=== PATIENT | female | born 1950 | race Caucasian/White ===

== ENCOUNTER 2018-04-26 07:28 | Day surgery (SDC) | payer OTHER ==
[~2018-04-26 07:28] MED LIST: CATAPRES0.1 MG PO; HYZAAR 100-12.1 EACH; HYZAAR 50/12.51 TAB; LEVOTHROID50 MCG PO; NEURONTIN250 MG/5 M; NOVOLIN 70100 UNITS/ SUBCUTANEO; PROTONIX20 MG PO; SYNTHROID50 MCG PO
== END 2018-04-26 14:55 | disposition home or self-care (01) ==
LOC: CIR.AMB 07:28
DX: G56.01 Carpal tunnel syndrome, right upper limb (principal)

== ENCOUNTER 2018-10-25 19:08 | Emergency (ER) | payer OTHER ==
[~2018-10-25] VITALS: Ht 154.9 cm; Wt 110.7 kg
== END 2018-10-25 22:02 | disposition home or self-care (01) ==
LOC: ER 19:08
DX: J06.9 Acute upper respiratory infection, unspecified (principal); H10.32 Unspecified acute conjunctivitis, left eye; J11.1 Influenza due to unidentified influenza virus with other respiratory manifestations

== ENCOUNTER 2019-11-21 04:43 | Emergency (ER) | payer OTHER ==
[~2019-11-21] VITALS: Ht 152.4 cm; Wt 102.1 kg
== END 2019-11-21 07:57 | disposition home or self-care (01) ==
LOC: ER 04:43
DX: R07.89 Other chest pain (principal); R06.02 Shortness of breath

== ENCOUNTER 2020-03-12 00:17 | Emergency (ER) | payer OTHER ==
[~2020-03-12] VITALS: Ht 154.9 cm; Wt 108.4 kg
[2020-03-12] MEDS ORDERED: NOVOLIN R100 UNIT/1 (00:27)
== END 2020-03-12 02:19 | disposition home or self-care (01) ==
LOC: ER 00:17
DX: J45.998 Other asthma (principal); R06.02 Shortness of breath; Z03.818 Encounter for observation for suspected exposure to other biological agents ruled out

== ENCOUNTER 2020-11-05 13:22 | Emergency (ER) | payer OTHER ==
[~2020-11-05] VITALS: Ht 154.9 cm; Wt 108.9 kg
[~2020-11-05 13:22] MED LIST changes: +NOVOLIN R100 UNIT/1
[2020-11-05] MEDS ORDERED: HYDROCHLOROTH12.5 MG PO (13:39)
[2020-11-05] MEDS ORDERED: HUMULIN N100 UNIT/2 SQ (13:39)
[2020-11-05] MEDS ORDERED: MONTELUKAST SOD10 MG PO (13:39)
[2020-11-05] MEDS ORDERED: NOVOLIN R100 UNIT/1 IM (13:39)
[2020-11-05] MEDS ORDERED: SYMBICORT 16010.2 GM IH (13:39)
[2020-11-05] MEDS ORDERED: IRBESARTAN300 MG PO (13:40)
== END 2020-11-05 15:35 | disposition home or self-care (01) ==
LOC: ER 13:22
DX: I87.2 Venous insufficiency (chronic) (peripheral) (principal); L03.116 Cellulitis of left lower limb; L03.115 Cellulitis of right lower limb

== ENCOUNTER 2021-08-11 07:53 | Emergency (ER) | payer OTHER ==
[~2021-08-11] VITALS: Ht 180.3 cm; Wt 108.9 kg
[~2021-08-11 07:53] MED LIST changes: +HUMULIN N100 UNIT/2 SQ; +HYDROCHLOROTH12.5 MG PO; +IRBESARTAN300 MG PO; +MONTELUKAST SOD10 MG PO; +NOVOLIN R100 UNIT/1 IM; +SYMBICORT 16010.2 GM IH
== END 2021-08-11 13:01 | disposition home or self-care (01) ==
LOC: ER 07:53
DX: J45.909 Unspecified asthma, uncomplicated (principal); Z20.822 Contact with and (suspected) exposure to COVID-19

== ENCOUNTER 2021-08-25 05:08 | Emergency (ER) | payer OTHER ==
[~2021-08-25] VITALS: Ht 154.9 cm; Wt 108.9 kg
== END 2021-08-25 14:14 | disposition home or self-care (01) ==
LOC: ER 05:08
DX: J45.998 Other asthma (principal); L03.031 Cellulitis of right toe; Z11.52 Encounter for screening for COVID-19

== ENCOUNTER 2021-10-29 14:23 | Inpatient (IN) | payer OTHER ==
[~2021-10-29] VITALS: Ht 154.9 cm; Wt 108.9 kg
[2021-10-29] MEDS ORDERED: NEURONTIN300 MG PO (14:41)
[2021-10-29] MEDS ORDERED: HUMULIN R100 UNIT/1 SUBCUTANEO (14:43)
== END 2021-11-11 18:21 | disposition home or self-care (01) | DRG 638 ==
LOC: ER 14:23 → MEDI 22:13
PROVIDERS: ADMIT Internal Medicine; ATTEND Internal Medicine
PROC: 3E0F7GC Introduction of Other Therapeutic Substance into Respiratory Tract, Via Natural or Artificial Opening (ICD-10-PCS; 2021-10-29)
PROC: 05HY33Z Insertion of Infusion Device into Upper Vein, Percutaneous Approach (ICD-10-PCS; 2021-11-04)
PROC: CW1 Nuclear Medicine, Anatomical Regions, Planar Nuclear Medicine Imaging (ICD-10-PCS; 2021-11-04)
PROC: 0HDMXZZ Extraction of Right Foot Skin, External Approach (ICD-10-PCS; principal; 2021-11-05)
PROC: CW1DLZZ Planar Nuclear Medicine Imaging of Lower Extremity using Gallium 67 (Ga-67) (ICD-10-PCS; 2021-11-07)
PROC: B24BZZZ Ultrasonography of Heart with Aorta (ICD-10-PCS; 2021-11-08)
DX: E11.621 Type 2 diabetes mellitus with foot ulcer (principal); L97.518 Non-pressure chronic ulcer of other part of right foot with other specified severity; I96 Gangrene, not elsewhere classified; L03.031 Cellulitis of right toe; E11.42 Type 2 diabetes mellitus with diabetic polyneuropathy; Z79.4 Long term (current) use of insulin; B96.5 Pseudomonas (aeruginosa) (mallei) (pseudomallei) as the cause of diseases classified elsewhere; B95.2 Enterococcus as the cause of diseases classified elsewhere; D64.9 Anemia, unspecified; M79.89 Other specified soft tissue disorders; I10 Essential (primary) hypertension; E03.8 Other specified hypothyroidism; J45.998 Other asthma; Z20.822 Contact with and (suspected) exposure to COVID-19

== ENCOUNTER 2022-03-31 10:06 | Inpatient (IN) | payer OTHER ==
[~2022-03-31] VITALS: Ht 154.9 cm; Wt 106.6 kg
[~2022-03-31 10:06] MED LIST changes: +HUMULIN R100 UNIT/1 SUBCUTANEO; +NEURONTIN300 MG PO
== END 2022-04-07 16:02 | disposition designated cancer center or children's hospital (05) | DRG 203 ==
LOC: ER 10:06 → MEDI 23:48 → SEC-K 23:48 → MEDI 04-01 10:07
PROVIDERS: ADMIT Internal Medicine; ATTEND Internal Medicine
PROC: 3E0F7SF Introduction of Other Gas into Respiratory Tract, Via Natural or Artificial Opening (ICD-10-PCS; principal; 2022-03-31)
PROC: 3E0F7GC Introduction of Other Therapeutic Substance into Respiratory Tract, Via Natural or Artificial Opening (ICD-10-PCS; 2022-03-31)
DX: J45.901 Unspecified asthma with (acute) exacerbation (principal); J44.9 Chronic obstructive pulmonary disease, unspecified; E11.65 Type 2 diabetes mellitus with hyperglycemia; E03.8 Other specified hypothyroidism; Z79.4 Long term (current) use of insulin; Z20.822 Contact with and (suspected) exposure to COVID-19

== ENCOUNTER 2022-07-29 11:20 | Inpatient (IN) | payer OTHER ==
[~2022-07-29] VITALS: Ht 154.9 cm; Wt 113.4 kg
[2022-07-29] MEDS ORDERED: ATORVASTATIN CA40 MG PO (11:35)
[2022-07-29] MEDS ORDERED: IRBESARTAN150 MG PO (11:35)
[2022-07-29] MEDS ORDERED: DILTIAZEM ER120 M3 PO (11:35)
[2022-07-29] MEDS ORDERED: LEVOFLOXACIN500 MG PO (11:35)
[2022-07-29] MEDS ORDERED: LEVOTHYROXINE100 MCG PO (11:36)
--- NOTE | 2022-07-29 11:38 | NUR ---
SE RECIBE PACIENTE ALERTA, ORIENTADA X 3 ESFERAS REFIERE TENER ASMA Y DOLOR EN AREA DE GARGANTA , SE ESTIMAN S/V SE UBICA EN ASMA UNIT
--- NOTE | 2022-07-29 12:04 | NUR ---
SE REALIZAN MEUSTRAS DE KAYCEE POR ORDEN MEDICA, SE REALIZA ADMINISTRACION DE SULFATO DE MAGNESIO, Y SOLUMEDROL. PACIENTE SE ORIENTA SOBRE USO Y EFECTOS Y SE MANTIENE A PACIENT EE ESPERA DE TERAPISTA. SE NOTIFICA A PERSONAL DE TERAPIA.
--- NOTE | 2022-07-29 13:22 | NUR ---
PACIENTE NO SE FLORES PODIDO MANEJAR PACIENTE SE ENCUENTRA EN ESTUDIO.
--- NOTE | 2022-07-29 14:47 | NUR ---
SE RECIBE PACIENTE EN AREA DE CRITICO, EN SILLA DE MAILE ACOMPANADA POR RN JUAN JOSE. PACIENTE ALERTA Y ORIENTADA X3 SE ASISTE PARA USAR EL YESSI. SE ACOMODA EN CAMA CON BARANDAS ELEVADAS Y TIMBRE ACCESIBLE. PACIENTE SE OBSEVA CANALIZADA EN MANO RT CON ANGIO 20 PATENTE BAJANDO MAGNESIUM SULFATE A GRAVEDAD CON REGULADOR MANUAL. MRS YODER CANALIZA EN MANO LT CON ANGIO 18 PATENTE BAJANDO UN TRIDIL A 3ML/HR. SE COLOCA CANULA NASAL A 2LT Y SE INSERTA BERNAL 16FR BAJO MEDIDAS ESTERILES. PACIENTE TOLERA EL PROCEDIMIENTO, SE ORIENTA A PACIENTE SOBRE CONTINUIDAD DE TRATAMIENTO.
== END 2022-08-03 19:30 | disposition home or self-care (01) | DRG 293 ==
LOC: ER 11:20 → MEDJ 21:15 → MEDI 07-31 09:09
PROVIDERS: ADMIT Internal Medicine; ATTEND Internal Medicine
PROC: 4A12X4Z Monitoring of Cardiac Electrical Activity, External Approach (ICD-10-PCS; principal; 2022-07-30)
PROC: 3E0F7GC Introduction of Other Therapeutic Substance into Respiratory Tract, Via Natural or Artificial Opening (ICD-10-PCS; 2022-07-30)
DX: I11.0 Hypertensive heart disease with heart failure (principal); I50.9 Heart failure, unspecified; F41.8 Other specified anxiety disorders; Z20.822 Contact with and (suspected) exposure to COVID-19

== ENCOUNTER 2022-11-12 09:10 | Inpatient (IN) | payer OTHER ==
[~2022-11-12] VITALS: Ht 154.9 cm; Wt 103.4 kg
[~2022-11-12 09:10] MED LIST changes: +ATORVASTATIN CA40 MG PO; +DILTIAZEM ER120 M3 PO; +IRBESARTAN150 MG PO; +LEVOFLOXACIN500 MG PO; +LEVOTHYROXINE100 MCG PO
--- NOTE | 2022-11-12 10:04 | NUR ---
SE RECIBE PTE ALERTA Y ORIENTADO PTE REFIERE QUE EL DR. DENISHA MANDUJANO YOU LA KATHLEEN A PASAR POR LUZ ELENA DE EMERGENCIAS DEBIDO AL DEDO NECROTICO QUE TIENE. PTE TIENE REFERIDO DEL MEDICO. SE GIACOMO VITALES Y SE FAVIAN EN LUZ ELENA DE ESPERA.
--- NOTE | 2022-11-12 11:27 | NUR ---
PTE ALERTA,ESTABLE Y ORIENTADA.SE EDUCA SOBRE EL TRATAMIENTO QUE RECIBIRA EN EL HOSPITAL Y ESTA REFIERE ENTENDER.SE LE GIACOMO MUESTRAS DE KAYCEE PALOMA ORDEN MEDICA Y SE LE ADMINISTRA MEDICAMENTOS PALOMA ORDEN MEDICA
--- NOTE | 2022-11-12 15:29 | NUR ---
SE RECIBE PTE ALERTA Y ORIENTADA EN EVELYN BAJA CON BARANDAS ELEVADAS POR SEGURIDAD. SE OBSERVA PTE CON BUEN PATRON RESPIRATORIO. RECIBIENDO IV FLUIDS PATENTES. AREA DE VENOPUNCION GALI DE EDEMA Y ERITEMA.PEND CONS. DR DENISHA OQUENDO, DR. MANDUJANO DE SURGERY.
[2022-11-28] MEDS ORDERED: INTESTINEX680 M1 PO (11:59)
[2022-11-28] MEDS ORDERED: ECOTRIN81 MG PO (12:00)
[2022-11-28] MEDS ORDERED: PROTONIX40 MG PO (12:00)
[2022-11-28] MEDS ORDERED: VITAMIN B-121000 MC2 SL (12:01)
[2022-11-28] MEDS ORDERED: FUSION PLUS CA1 EACH PO (12:01)
[2022-11-28] MEDS ORDERED: FOLIC ACID0.8 M1 PO (12:02)
[2022-11-28] MEDS ORDERED: CARAFATE1 GM PO (12:03)
== END 2022-11-28 12:53 | disposition home or self-care (01) | DRG 256 ==
LOC: ER 09:10 → EMR PED 09:15 → SURH 20:43 → MEDJ 20:43 → SEC-K 20:43 → SURH 11-13 03:26 → MEDI 11-16 15:47 → MEDJ 11-19 19:21
PROVIDERS: Specialist; ADMIT Internal Medicine; ATTEND Internal Medicine
PROC: B54BZZZ Ultrasonography of Right Lower Extremity Veins (ICD-10-PCS; 2022-11-12)
PROC: BQ3DZZZ Magnetic Resonance Imaging (MRI) of Right Lower Leg (ICD-10-PCS; 2022-11-13)
PROC: B246ZZZ Ultrasonography of Right and Left Heart (ICD-10-PCS; 2022-11-13)
PROC: 3E0F7GC Introduction of Other Therapeutic Substance into Respiratory Tract, Via Natural or Artificial Opening (ICD-10-PCS; 2022-11-16)
PROC: 4A12X4Z Monitoring of Cardiac Electrical Activity, External Approach (ICD-10-PCS; 2022-11-17)
PROC: 30233N1 Transfusion of Nonautologous Red Blood Cells into Peripheral Vein, Percutaneous Approach (ICD-10-PCS; 2022-11-17)
PROC: BW40ZZZ Ultrasonography of Abdomen (ICD-10-PCS; 2022-11-22)
PROC: 0Y6R0Z0 Detachment at Right 2nd Toe, Complete, Open Approach (ICD-10-PCS; principal; 2022-11-23 07:00)
PROC: 02HV33Z Insertion of Infusion Device into Superior Vena Cava, Percutaneous Approach (ICD-10-PCS; 2022-11-24)
DX: E11.52 Type 2 diabetes mellitus with diabetic peripheral angiopathy with gangrene (principal); I96 Gangrene, not elsewhere classified; M86.171 Other acute osteomyelitis, right ankle and foot; L97.518 Non-pressure chronic ulcer of other part of right foot with other specified severity; E11.69 Type 2 diabetes mellitus with other specified complication; E11.621 Type 2 diabetes mellitus with foot ulcer; E11.628 Type 2 diabetes mellitus with other skin complications; E11.65 Type 2 diabetes mellitus with hyperglycemia; L03.031 Cellulitis of right toe; Z79.4 Long term (current) use of insulin; B96.89 Other specified bacterial agents as the cause of diseases classified elsewhere; B95.2 Enterococcus as the cause of diseases classified elsewhere; I87.2 Venous insufficiency (chronic) (peripheral)

== ENCOUNTER 2023-05-31 23:22 | Emergency (ER) | payer OTHER ==
[~2023-05-31] VITALS: Ht 154.9 cm; Wt 103.4 kg
[~2023-05-31 23:22] MED LIST changes: +CARAFATE1 GM PO; +ECOTRIN81 MG PO; +FOLIC ACID0.8 M1 PO; +FUSION PLUS CA1 EACH PO; +INTESTINEX680 M1 PO; +PROTONIX40 MG PO; +VITAMIN B-121000 MC2 SL
[2023-05-31] MEDS ORDERED: LORATADINE10 MG PO (23:30)
== END 2023-06-01 06:26 | disposition home or self-care (01) ==
LOC: ER 23:22
DX: I50.9 Heart failure, unspecified (principal); E11.65 Type 2 diabetes mellitus with hyperglycemia; Z79.4 Long term (current) use of insulin; Z20.822 Contact with and (suspected) exposure to COVID-19; Z88.6 Allergy status to analgesic agent; J44.9 Chronic obstructive pulmonary disease, unspecified
CPT/HCPCS: 51702; 82803; 93005; 94640; 96365; 96372; 99284; J1940

== ENCOUNTER 2023-07-19 21:13 | Inpatient (IN) | payer OTHER ==
[~2023-07-19] VITALS: Ht 152.4 cm; Wt 159.7 kg
[~2023-07-19 21:13] MED LIST changes: +LORATADINE10 MG PO
--- NOTE | 2023-07-19 21:52 | NUR ---
PACIENTE ALERTA Y ORIENTADA X 3. REFIERE DR MANDUJANO YOU LE INDICO PASAR POR LUZ ELENA DE EMERGENCIA PARA ADMISION POR INFLAMACION EN PIERNA DERECHA Y AREA DEL PIEN ENROJESIDA. PACIENTE LE FUERON REMOVIDOS 3 1/2 DEDOS DEL PIE DERECHO. REFIERE TENER DOLOR DE ESPALDA Y DEBILIDAD.
--- NOTE | 2023-07-19 22:46 | NUR ---
SE EDUCA PACIENTE SOBRE EL [place] MEDICO Y ESTA REFIERE ENTENDER. SE CANALIZA Y SE ADMINITRA MEDICAMENTOS PALOMA ORDEN MEDICA. SE GIACOMO MUESTRAS DE LABORAOTRIO Y SE ENVIAN. PENDINETE A PLACA
[2023-07-19 23:17] LABS: HEMATOCRIT 31.9 % (36.0-45.00); MEAN CELL VOLUME 87.6 fL (80.00-100.00); MEAN CORPUSCULAR HGB CONC 34.3 g/dl (32.0-36.0); PLATELET COUNT 243 K/uL (150-450); RED BLOOD COUNT 3.65 M/uL (4.00-6.00)
[2023-07-19 23:22] LABS: MEAN CORPUSCULAR HEMOGLOBIN 30.1 pg (27.00-32.0)
[2023-07-19 23:25] LABS: ERYTHROCYTE SEDIMENTATION RATE 89 mm/hr; INR 0.97; PARTIAL THROMBOPLASTIN TIME 26.2 SECONDS (22.0-34.0); PROTHROMBIN TIME 10.2 SECONDS (9.0-11.5)
[2023-07-20 02:20] LABS: ABG PH 7.377 (7.35-7.45); ABG PO2 94.5 mmHg (80-100); BASE EXCESS -0.6 mmol/l; SaO2 97.1 %
[2023-07-20 02:21] LABS: BICARBONATE 24.7 mmol/l (23-25); allen test SATISFACTORY; puncture site RADIAL LEFT
[2023-07-20 02:22] LABS: o2 21 %
[2023-07-20 07:19] LABS: HEMATOCRIT 32.5 % (36.0-45.00); HEMOGLOBIN 10.8 g/dL (12.0-15.00); MEAN CELL VOLUME 88.1 fL (80.00-100.00); MEAN CORPUSCULAR HEMOGLOBIN 29.3 pg (27.00-32.0); MEAN CORPUSCULAR HGB CONC 33.3 g/dl (32.0-36.0); PLATELET COUNT 237 K/uL (150-450); RED BLOOD COUNT 3.69 M/uL (4.00-6.00); RED CELL DISTRIBUTION WIDTH 14.7 % (11.5-14.5)
[2023-07-20 08:21] LABS: ALBUMIN 2.6 gm/dL (3.4-5.0); BILIRUBIN TOTAL 0.35 mg/dL (0.3-1.2); CALCIUM 8.7 mg/dL (8.5-10.1); CHOL HDL RATIO 2.8 (0-5.0); CREATININE SERUM 0.73 mg/dL (0.55-1.02); GFR 78.15; GLOBULINA 4.1 G/DL (2.4-3.5); POTASSIUM 5.13 mEq/L (3.5-5.1); TOTAL PROTEIN 6.7 gm/dL (6.4-8.2)
[2023-07-20 08:27] LABS: T4 FREE 1.51 NG/ML (0.76-1.46); TSH 0.017 uIU/mL (0.358-3.74)
[2023-07-21 07:36] LABS: HEMATOCRIT 32.6 % (36.0-45.00); HEMOGLOBIN 10.8 g/dL (12.0-15.00); MEAN CELL VOLUME 88.5 fL (80.00-100.00); MEAN CORPUSCULAR HEMOGLOBIN 29.3 pg (27.00-32.0); MEAN CORPUSCULAR HGB CONC 33.1 g/dl (32.0-36.0); PLATELET COUNT 235 K/uL (150-450); RED BLOOD COUNT 3.68 M/uL (4.00-6.00); RED CELL DISTRIBUTION WIDTH 14.7 % (11.5-14.5)
[2023-07-21 08:28] LABS: ALBUMIN 2.5 gm/dL (3.4-5.0); BILIRUBIN TOTAL 0.41 mg/dL (0.3-1.2); CALCIUM 8.8 mg/dL (8.5-10.1); CREATININE SERUM 0.88 mg/dL (0.55-1.02); GFR 62.99; GLOBULINA 3.9 G/DL (2.4-3.5); MAGNESIUM 1.6 mg/dL (1.8-2.4); PHOSPHOROUS 3.8 mg/dL (2.5-4.9); POTASSIUM 4.98 mEq/L (3.5-5.1); TOTAL PROTEIN 6.4 gm/dL (6.4-8.2)
[2023-07-21 08:36] LABS: C-REACTIVE PROTEIN 2.03 MG/DL (0.00-0.29)
[2023-07-22 07:54] LABS: CALCIUM 8.9 mg/dL (8.5-10.1); CREATININE SERUM 0.86 mg/dL (0.55-1.02); GFR 64.68; POTASSIUM 4.75 mEq/L (3.5-5.1)
[2023-07-23 06:58] LABS: ALBUMIN 2.6 gm/dL (3.4-5.0); BILIRUBIN TOTAL 0.27 mg/dL (0.3-1.2); CALCIUM 8.8 mg/dL (8.5-10.1); CREATININE SERUM 1.17 mg/dL (0.55-1.02); GFR 45.34; GLOBULINA 3.9 G/DL (2.4-3.5); POTASSIUM 5.2 mEq/L (3.5-5.1); TOTAL PROTEIN 6.5 gm/dL (6.4-8.2)
[2023-07-24 07:04] LABS: HEMATOCRIT 26.1 % (36.0-45.00); MEAN CORPUSCULAR HEMOGLOBIN 29.3 pg (27.00-32.0); MEAN CORPUSCULAR HGB CONC 33.3 g/dl (32.0-36.0); PLATELET COUNT 188 K/uL (150-450); RED BLOOD COUNT 2.96 M/uL (4.00-6.00); RED CELL DISTRIBUTION WIDTH 14.5 % (11.5-14.5)
[2023-07-24 07:11] LABS: HEMOGLOBIN 8.7 g/dL (12.0-15.00)
[2023-07-24 07:52] LABS: ALBUMIN 2.4 gm/dL (3.4-5.0); BILIRUBIN TOTAL 0.27 mg/dL (0.3-1.2); CKMB 1.9 NG/ML (0.5-3.6); CREATININE SERUM 3.14 mg/dL (0.55-1.02); GFR 14.51; GLOBULINA 3.6 G/DL (2.4-3.5); POTASSIUM 4.95 mEq/L (3.5-5.1)
[2023-07-24 15:55] LABS: MEAN CORPUSCULAR HGB CONC 34.5 g/dl (32.0-36.0); PLATELET COUNT 188 K/uL (150-450); RED BLOOD COUNT 2.88 M/uL (4.00-6.00); RED CELL DISTRIBUTION WIDTH 14.5 % (11.5-14.5)
[2023-07-24 15:57] LABS: HEMOGLOBIN 8.6 g/dL (12.0-15.00); MEAN CORPUSCULAR HEMOGLOBIN 29.8 pg (27.00-32.0)
[2023-07-25 12:46] LABS: ALBUMIN 2.2 gm/dL (3.4-5.0); BILIRUBIN TOTAL 0.43 mg/dL (0.3-1.2); CALCIUM 8.1 mg/dL (8.5-10.1); GFR 8.83; GLOBULINA 3.7 G/DL (2.4-3.5); POTASSIUM 5.52 mEq/L (3.5-5.1); TOTAL PROTEIN 5.9 gm/dL (6.4-8.2)
[2023-07-25 12:50] LABS: CREATININE SERUM 4.83 mg/dL (0.55-1.02)
[2023-07-25 23:13] LABS: HEMATOCRIT 28.7 % (36.0-45.00); HEMOGLOBIN 9.9 g/dL (12.0-15.00); MEAN CELL VOLUME 85.6 fL (80.00-100.00); MEAN CORPUSCULAR HEMOGLOBIN 29.5 pg (27.00-32.0); MEAN CORPUSCULAR HGB CONC 34.5 g/dl (32.0-36.0); PLATELET COUNT 160 K/uL (150-450); RED BLOOD COUNT 3.35 M/uL (4.00-6.00)
[2023-07-26 02:09] LABS: URINE APPEARANCE Turbid; URINE BILIRRUBIN Negative (NEGATIVE); URINE BLOOD Small; URINE COLOR Yellow; URINE LEUKOCYTE Large; URINE NITRATE Negative; URINE UROBILINOGEN 0.2 E.U./dl
[2023-07-26 02:13] LABS: URINE BACTERIA 1985.1 uL (0.0-1933); URINE EPITHELIAL CELLS 108.9 uL (0.0-38.8); URINE RBC 2739.9 uL (0.0-20.8)
[2023-07-26 02:23] LABS: URINE GLUCOSE 100 MG/DL (NEGATIVE); URINE PROTEIN 100 (NEGATIVE); URINE WBC > 5548.3 uL (0.0-23.2); URINE YEAST MANY /hpf
[2023-07-26 02:49] LABS: CREATININE URINE RANDOM 19.2 MG/DL (30-125)
[2023-07-26 06:51] LABS: HEMATOCRIT 26.5 % (36.0-45.00); HEMOGLOBIN 9.4 g/dL (12.0-15.00); MEAN CELL VOLUME 84.8 fL (80.00-100.00); MEAN CORPUSCULAR HEMOGLOBIN 30.1 pg (27.00-32.0); MEAN CORPUSCULAR HGB CONC 35.5 g/dl (32.0-36.0); PLATELET COUNT 160 K/uL (150-450); RED BLOOD COUNT 3.12 M/uL (4.00-6.00); RED CELL DISTRIBUTION WIDTH 14.7 % (11.5-14.5)
[2023-07-26 07:39] LABS: BILIRUBIN TOTAL 0.53 mg/dL (0.3-1.2); CALCIUM 7.9 mg/dL (8.5-10.1); GFR 8.25; GLOBULINA 3.4 G/DL (2.4-3.5); MAGNESIUM 2.1 mg/dL (1.8-2.4); PHOSPHOROUS 6.8 mg/dL (2.5-4.9); POTASSIUM 5.06 mEq/L (3.5-5.1); TOTAL PROTEIN 5.4 gm/dL (6.4-8.2); URIC ACID 7.1 mg/dL (2.5-7.5)
[2023-07-26 07:59] LABS: CREATININE SERUM 5.12 mg/dL (0.55-1.02)
[2023-07-26 15:23] LABS: URINE APPEARANCE Cloudy; URINE BILIRRUBIN Negative (NEGATIVE); URINE BLOOD Small; URINE COLOR Yellow; URINE GLUCOSE Negative (NEGATIVE); URINE LEUKOCYTE Large; URINE NITRATE Negative; URINE UROBILINOGEN 0.2 E.U./dl
[2023-07-26 15:24] LABS: URINE BACTERIA 455.7 uL (0.0-1933); URINE EPITHELIAL CELLS 5.1 uL (0.0-38.8); URINE RBC 188.6 uL (0.0-20.8); URINE WBC 2111.3 uL (0.0-23.2)
[2023-07-26 15:43] LABS: URINE PROTEIN 100 (NEGATIVE); URINE YEAST MANY /hpf
[2023-07-27 07:30] LABS: HEMATOCRIT 29.6 % (36.0-45.00); HEMOGLOBIN 10.1 g/dL (12.0-15.00); MEAN CELL VOLUME 85.8 fL (80.00-100.00); MEAN CORPUSCULAR HEMOGLOBIN 29.3 pg (27.00-32.0); MEAN CORPUSCULAR HGB CONC 34.1 g/dl (32.0-36.0); PLATELET COUNT 199 K/uL (150-450); RED BLOOD COUNT 3.46 M/uL (4.00-6.00)
[2023-07-27 08:23] LABS: ALBUMIN 2.3 gm/dL (3.4-5.0); CALCIUM 8.1 mg/dL (8.5-10.1); CREATININE SERUM 3.9 mg/dL (0.55-1.02); GFR 11.3; PHOSPHOROUS 6.4 mg/dL (2.5-4.9); POTASSIUM 4.27 mEq/L (3.5-5.1)
[2023-07-28 07:15] LABS: CALCIUM 7.9 mg/dL (8.5-10.1); CREATININE SERUM 2.11 mg/dL (0.55-1.02); GFR 22.96; POTASSIUM 4.08 mEq/L (3.5-5.1)
[2023-07-30 06:49] LABS: HEMATOCRIT 32.3 % (36.0-45.00); HEMOGLOBIN 10.6 g/dL (12.0-15.00); MEAN CORPUSCULAR HEMOGLOBIN 28.8 pg (27.00-32.0); MEAN CORPUSCULAR HGB CONC 32.7 g/dl (32.0-36.0); PLATELET COUNT 234 K/uL (150-450); RED BLOOD COUNT 3.66 M/uL (4.00-6.00); RED CELL DISTRIBUTION WIDTH 14.9 % (11.5-14.5)
[2023-07-30 08:03] LABS: CALCIUM 8.1 mg/dL (8.5-10.1); CREATININE SERUM 0.89 mg/dL (0.55-1.02); GFR 62.17; PHOSPHOROUS 2.5 mg/dL (2.5-4.9); POTASSIUM 4.12 mEq/L (3.5-5.1)
[2023-07-30 08:16] LABS: MAGNESIUM 1.4 mg/dL (1.8-2.4)
[2023-08-03] MEDS ORDERED: ELIQUIS5 MG PO (13:04)
[2023-08-03] MEDS ORDERED: FUSION PLUS CA1 EACH PO (13:05)
[2023-08-03] MEDS ORDERED: AMLODIPINE BESYL5 MG PO (13:05)
[2023-08-03] MEDS ORDERED: CLOPIDOGREL BIS75 MG PO (13:05)
[2023-08-03] MEDS ORDERED: LIPITOR40 M1 PO (13:05)
[2023-08-03] MEDS ORDERED: LORATADINE10 MG PO (13:05)
[2023-08-03] MEDS ORDERED: IRBESARTAN150 MG PO (13:06)
[2023-08-03] MEDS ORDERED: TOPROL XL100 M1 PO (13:06)
[2023-08-03] MEDS ORDERED: HYDRALAZINE HCL25 MG PO (13:06)
[2023-08-03] MEDS ORDERED: CARAFATE1 GM PO (13:07)
[2023-08-03] MEDS ORDERED: TRAMADOL HCL50 MG PO (13:07)
[2023-08-03] MEDS ORDERED: NEURONTIN300 MG PO (13:07)
[2023-08-03] MEDS ORDERED: SYNTHROID50 MCG PO (13:08)
== END 2023-08-03 13:55 | disposition home or self-care (01) | DRG 580 ==
LOC: ER 21:13 → SURG 23:53 → ICU 07-26 05:24 → SURH 07-30 14:08
PROVIDERS: General Practice; Internal Medicine Infectious Disease; Internal Medicine Nephrology; ADMIT Internal Medicine; ATTEND Internal Medicine
PROC: B54BZZZ Ultrasonography of Right Lower Extremity Veins (ICD-10-PCS; 2023-07-19)
PROC: BQ3LZZZ Magnetic Resonance Imaging (MRI) of Right Foot (ICD-10-PCS; 2023-07-20)
PROC: 8E0ZXY6 Isolation (ICD-10-PCS; 2023-07-22)
PROC: 30233N1 Transfusion of Nonautologous Red Blood Cells into Peripheral Vein, Percutaneous Approach (ICD-10-PCS; 2023-07-25)
PROC: 0Y6V0Z3 Detachment at Right 4th Toe, Low, Open Approach (ICD-10-PCS; principal; 2023-07-26)
PROC: BW21ZZZ Computerized Tomography (CT Scan) of Abdomen and Pelvis (ICD-10-PCS; 2023-07-26)
PROC: BT43ZZZ Ultrasonography of Bilateral Kidneys (ICD-10-PCS; 2023-07-26)
PROC: B24BYZZ Ultrasonography of Heart with Aorta using Other Contrast (ICD-10-PCS; 2023-07-27)
DX: L03.115 Cellulitis of right lower limb (principal); E11.52 Type 2 diabetes mellitus with diabetic peripheral angiopathy with gangrene; I96 Gangrene, not elsewhere classified; N39.0 Urinary tract infection, site not specified; N17.9 Acute kidney failure, unspecified; M86.9 Osteomyelitis, unspecified; E11.621 Type 2 diabetes mellitus with foot ulcer; L97.519 Non-pressure chronic ulcer of other part of right foot with unspecified severity; Z79.4 Long term (current) use of insulin; J44.9 Chronic obstructive pulmonary disease, unspecified; Z74.01 Bed confinement status; E11.22 Type 2 diabetes mellitus with diabetic chronic kidney disease; I12.9 Hypertensive chronic kidney disease with stage 1 through stage 4 chronic kidney disease, or unspecified chronic kidney disease; N18.9 Chronic kidney disease, unspecified; B96.89 Other specified bacterial agents as the cause of diseases classified elsewhere; B96.1 Klebsiella pneumoniae [K. pneumoniae] as the cause of diseases classified elsewhere; B96.5 Pseudomonas (aeruginosa) (mallei) (pseudomallei) as the cause of diseases classified elsewhere; B95.1 Streptococcus, group B, as the cause of diseases classified elsewhere; E11.51 Type 2 diabetes mellitus with diabetic peripheral angiopathy without gangrene; E66.01 Morbid (severe) obesity due to excess calories; Z68.37 Body mass index [BMI] 37.0-37.9, adult; I48.0 Paroxysmal atrial fibrillation; I87.2 Venous insufficiency (chronic) (peripheral); I51.9 Heart disease, unspecified; D64.9 Anemia, unspecified
CPT/HCPCS: 73725

== ENCOUNTER 2023-09-21 11:47 | Inpatient (IN) | payer OTHER ==
[~2023-09-21] VITALS: Ht 162.6 cm; Wt 106.1 kg
[~2023-09-21 11:47] MED LIST changes: +AMLODIPINE BESYL5 MG PO; +CLOPIDOGREL BIS75 MG PO; +ELIQUIS5 MG PO; +HYDRALAZINE HCL25 MG PO; +LIPITOR40 M1 PO; +TOPROL XL100 M1 PO; +TRAMADOL HCL50 MG PO
[2023-09-21 12:51] LABS: HEMATOCRIT 27.9 % (36.0-45.00); HEMOGLOBIN 9.5 g/dL (12.0-15.00); MEAN CELL VOLUME 90.3 fL (80.00-100.00); MEAN CORPUSCULAR HEMOGLOBIN 30.8 pg (27.00-32.0); MEAN CORPUSCULAR HGB CONC 34.1 g/dl (32.0-36.0); PLATELET COUNT 223 K/uL (150-450); RED BLOOD COUNT 3.08 M/uL (4.00-6.00); RED CELL DISTRIBUTION WIDTH 13.9 % (11.5-14.5)
[2023-09-21 13:13] LABS: INR 1.01; PARTIAL THROMBOPLASTIN TIME 29.3 SECONDS (22.0-34.0); PROTHROMBIN TIME 10.6 SECONDS (9.0-11.5)
[2023-09-21 13:17] LABS: ALBUMIN 2.9 gm/dL (3.4-5.0); BILIRUBIN TOTAL 0.4 mg/dL (0.3-1.2); CALCIUM 9.2 mg/dL (8.5-10.1); CREATININE SERUM 1.1 mg/dL (0.55-1.02); GFR 48.69; GLOBULINA 4.9 G/DL (2.4-3.5); POTASSIUM 4.66 mEq/L (3.5-5.1); TOTAL PROTEIN 7.8 gm/dL (6.4-8.2)
[2023-09-21 13:27] LABS: URINE APPEARANCE Cloudy; URINE BILIRRUBIN Negative (NEGATIVE); URINE BLOOD Trace; URINE COLOR Yellow; URINE LEUKOCYTE Small; URINE NITRATE Negative; URINE UROBILINOGEN 0.2 E.U./dl
[2023-09-21 13:30] LABS: C-REACTIVE PROTEIN 10.1 MG/DL (0.00-0.29)
[2023-09-21 13:35] LABS: URINE EPITHELIAL CELLS 7.7 uL (0.0-38.8); URINE RBC 3.7 uL (0.0-20.8); URINE WBC 502.2 uL (0.0-23.2)
[2023-09-21 13:42] LABS: URINE BACTERIA > 9821.5 uL (0.0-1933); URINE GLUCOSE 100 MG/DL (NEGATIVE); URINE PROTEIN 100 (NEGATIVE)
[2023-09-21 13:54] LABS: ERYTHROCYTE SEDIMENTATION RATE 81 mm/hr
[2023-09-22 17:24] LABS: PH,URINE 5.5 (5.0-8.0); URINE APPEARANCE Turbid; URINE BILIRRUBIN Negative (NEGATIVE); URINE BLOOD Moderate; URINE COLOR Yellow; URINE LEUKOCYTE Large; URINE NITRATE Negative; URINE UROBILINOGEN 0.2 E.U./dl
[2023-09-22 17:28] LABS: URINE BACTERIA 721.9 uL (0.0-1933); URINE EPITHELIAL CELLS 126.5 uL (0.0-38.8); URINE RBC 13.7 uL (0.0-20.8)
[2023-09-22 17:47] LABS: URINE GLUCOSE 500 MG/DL (NEGATIVE); URINE PROTEIN 100 (NEGATIVE); URINE WBC > 5548.3 uL (0.0-23.2)
[2023-09-22 17:48] LABS: URINE MUCUS SCANT
[2023-09-23 07:56] LABS: HEMATOCRIT 24.3 % (36.0-45.00); MEAN CELL VOLUME 89.2 fL (80.00-100.00); MEAN CORPUSCULAR HEMOGLOBIN 31.2 pg (27.00-32.0); MEAN CORPUSCULAR HGB CONC 34.9 g/dl (32.0-36.0); PLATELET COUNT 184 K/uL (150-450); RED BLOOD COUNT 2.72 M/uL (4.00-6.00); RED CELL DISTRIBUTION WIDTH 13.7 % (11.5-14.5)
[2023-09-23 08:01] LABS: HEMOGLOBIN 8.5 g/dL (12.0-15.00)
[2023-09-23 08:09] LABS: ALBUMIN 2.2 gm/dL (3.4-5.0); BILIRUBIN TOTAL 0.45 mg/dL (0.3-1.2); CREATININE SERUM 0.68 mg/dL (0.55-1.02); GFR 84.81; GLOBULINA 3.5 G/DL (2.4-3.5); MAGNESIUM 1.5 mg/dL (1.8-2.4); PHOSPHOROUS 2.6 mg/dL (2.5-4.9); POTASSIUM 4.03 mEq/L (3.5-5.1); TOTAL PROTEIN 5.7 gm/dL (6.4-8.2)
[2023-09-23 08:37] LABS: C-REACTIVE PROTEIN 9.87 MG/DL (0.00-0.29)
[2023-09-26 11:22] LABS: HEMATOCRIT 33.5 % (36.0-45.00); HEMOGLOBIN 11.4 g/dL (12.0-15.00); MEAN CELL VOLUME 86.9 fL (80.00-100.00); MEAN CORPUSCULAR HEMOGLOBIN 29.6 pg (27.00-32.0); PLATELET COUNT 204 K/uL (150-450); RED BLOOD COUNT 3.86 M/uL (4.00-6.00); RED CELL DISTRIBUTION WIDTH 15.6 % (11.5-14.5)
[2023-09-28 06:54] LABS: HEMATOCRIT 30.8 % (36.0-45.00); HEMOGLOBIN 10.7 g/dL (12.0-15.00); MEAN CELL VOLUME 87.1 fL (80.00-100.00); MEAN CORPUSCULAR HEMOGLOBIN 30.2 pg (27.00-32.0); MEAN CORPUSCULAR HGB CONC 34.7 g/dl (32.0-36.0); PLATELET COUNT 196 K/uL (150-450); RED BLOOD COUNT 3.54 M/uL (4.00-6.00); RED CELL DISTRIBUTION WIDTH 15.2 % (11.5-14.5)
[2023-09-28 07:23] LABS: ALBUMIN 2.1 gm/dL (3.4-5.0); BILIRUBIN TOTAL 1.11 mg/dL (0.3-1.2); C-REACTIVE PROTEIN 7.99 MG/DL (0.00-0.29); CALCIUM 8.3 mg/dL (8.5-10.1); CREATININE SERUM 0.91 mg/dL (0.55-1.02); GFR 60.6; GLOBULINA 4.1 G/DL (2.4-3.5); MAGNESIUM 1.9 mg/dL (1.8-2.4); PHOSPHOROUS 2.3 mg/dL (2.5-4.9); POTASSIUM 4.04 mEq/L (3.5-5.1); TOTAL PROTEIN 6.2 gm/dL (6.4-8.2)
[2023-10-02 05:21] LABS: HEMATOCRIT 30.2 % (36.0-45.00); HEMOGLOBIN 10.3 g/dL (12.0-15.00); MEAN CELL VOLUME 88.9 fL (80.00-100.00); MEAN CORPUSCULAR HEMOGLOBIN 30.3 pg (27.00-32.0); MEAN CORPUSCULAR HGB CONC 34.1 g/dl (32.0-36.0); PLATELET COUNT 198 K/uL (150-450); RED CELL DISTRIBUTION WIDTH 14.8 % (11.5-14.5)
[2023-10-02 05:47] LABS: ALBUMIN 2.3 gm/dL (3.4-5.0); BILIRUBIN TOTAL 0.65 mg/dL (0.3-1.2); CALCIUM 8.2 mg/dL (8.5-10.1); CREATININE SERUM 1.34 mg/dL (0.55-1.02); GFR 38.77; GLOBULINA 4.2 G/DL (2.4-3.5); MAGNESIUM 1.9 mg/dL (1.8-2.4); PHOSPHOROUS 3.4 mg/dL (2.5-4.9); POTASSIUM 3.69 mEq/L (3.5-5.1); TOTAL PROTEIN 6.5 gm/dL (6.4-8.2)
[2023-10-02 05:49] LABS: C-REACTIVE PROTEIN 10.6 MG/DL (0.00-0.29)
[2023-10-03 07:39] LABS: ALBUMIN 2.1 gm/dL (3.4-5.0); CALCIUM 8.3 mg/dL (8.5-10.1); CREATININE SERUM 1.16 mg/dL (0.55-1.02); GFR 45.79; PHOSPHOROUS 3.4 mg/dL (2.5-4.9); POTASSIUM 3.97 mEq/L (3.5-5.1)
[2023-10-03 08:40] LABS: HEMATOCRIT 28.3 % (36.0-45.00); HEMOGLOBIN 9.7 g/dL (12.0-15.00); MEAN CELL VOLUME 89.5 fL (80.00-100.00); MEAN CORPUSCULAR HEMOGLOBIN 30.7 pg (27.00-32.0); MEAN CORPUSCULAR HGB CONC 34.3 g/dl (32.0-36.0); PLATELET COUNT 211 K/uL (150-450); RED BLOOD COUNT 3.16 M/uL (4.00-6.00); RED CELL DISTRIBUTION WIDTH 14.5 % (11.5-14.5)
== END 2023-10-03 20:53 | disposition home or self-care (01) | DRG 256 ==
LOC: ER 11:47 → MEDI 19:31
PROVIDERS: General Practice; Internal Medicine; Internal Medicine Infectious Disease; Specialist; ADMIT Internal Medicine; ATTEND Internal Medicine
PROC: B54BZZZ Ultrasonography of Right Lower Extremity Veins (ICD-10-PCS; 2023-09-21)
PROC: 30233N1 Transfusion of Nonautologous Red Blood Cells into Peripheral Vein, Percutaneous Approach (ICD-10-PCS; 2023-09-24)
PROC: 4A12X4Z Monitoring of Cardiac Electrical Activity, External Approach (ICD-10-PCS; 2023-09-26)
PROC: 0Y6X0Z0 Detachment at Right 5th Toe, Complete, Open Approach (ICD-10-PCS; principal; 2023-09-29 14:00)
DX: E11.52 Type 2 diabetes mellitus with diabetic peripheral angiopathy with gangrene (principal); I50.30 Unspecified diastolic (congestive) heart failure; I96 Gangrene, not elsewhere classified; Z79.4 Long term (current) use of insulin; Z74.01 Bed confinement status; D64.9 Anemia, unspecified; E78.5 Hyperlipidemia, unspecified; E66.01 Morbid (severe) obesity due to excess calories; E11.51 Type 2 diabetes mellitus with diabetic peripheral angiopathy without gangrene; I48.91 Unspecified atrial fibrillation; E03.9 Hypothyroidism, unspecified; E11.22 Type 2 diabetes mellitus with diabetic chronic kidney disease; I12.9 Hypertensive chronic kidney disease with stage 1 through stage 4 chronic kidney disease, or unspecified chronic kidney disease; N18.9 Chronic kidney disease, unspecified; B96.1 Klebsiella pneumoniae [K. pneumoniae] as the cause of diseases classified elsewhere; B96.4 Proteus (mirabilis) (morganii) as the cause of diseases classified elsewhere; B95.2 Enterococcus as the cause of diseases classified elsewhere

== ENCOUNTER 2023-10-05 12:57 | Emergency (ER) | payer OTHER ==
[~2023-10-05] VITALS: Ht 154.9 cm; Wt 97.5 kg
[2023-10-05 15:00] LABS: HEMATOCRIT 32.3 % (36.0-45.00); HEMOGLOBIN 10.9 g/dL (12.0-15.00); MEAN CELL VOLUME 87.4 fL (80.00-100.00); MEAN CORPUSCULAR HEMOGLOBIN 29.5 pg (27.00-32.0); MEAN CORPUSCULAR HGB CONC 33.8 g/dl (32.0-36.0); PLATELET COUNT 283 K/uL (150-450); RED CELL DISTRIBUTION WIDTH 14.5 % (11.5-14.5)
[2023-10-05 15:01] LABS: ABG PH 7.447 (7.35-7.45); ABG PO2 79.7 mmHg (80-100); ABG pCO2 49.1 mmHg (35-45); BASE EXCESS 7.6 mmol/l; BICARBONATE 33.1 mmol/l (23-25); SaO2 96.5 %; Tco2 34.6 mmol/l
[2023-10-05 15:02] LABS: allen test SATISFACTORY; puncture site RADIAL RIGHT
[2023-10-05 15:03] LABS: o2 21 %
[2023-10-05 15:30] LABS: ALBUMIN 2.3 gm/dL (3.4-5.0); BILIRUBIN TOTAL 0.49 mg/dL (0.3-1.2); CALCIUM 8.6 mg/dL (8.5-10.1); GFR 54.35; GLOBULINA 4.5 G/DL (2.4-3.5); POTASSIUM 3.49 mEq/L (3.5-5.1); TOTAL PROTEIN 6.8 gm/dL (6.4-8.2)
[2023-10-05 15:36] LABS: URINE APPEARANCE Clear; URINE BILIRRUBIN Negative (NEGATIVE); URINE BLOOD Negative; URINE COLOR Yellow; URINE GLUCOSE Negative (NEGATIVE); URINE LEUKOCYTE Negative; URINE NITRATE Negative; URINE PROTEIN 30 (NEGATIVE); URINE UROBILINOGEN 0.2 E.U./dl
[2023-10-05 15:40] LABS: INR 1.04; PARTIAL THROMBOPLASTIN TIME 31.1 SECONDS (22.0-34.0); PROTHROMBIN TIME 10.9 SECONDS (9.0-11.5)
[2023-10-05 15:46] LABS: URINE EPITHELIAL CELLS 2.9 uL (0.0-38.8); URINE WBC 4.1 uL (0.0-23.2)
[2023-10-05 15:47] LABS: URINE BACTERIA 3.7 uL (0.0-1933)
== END 2023-10-05 17:26 | disposition home or self-care (01) ==
LOC: ER 12:57
PROVIDERS: General Practice
DX: I87.2 Venous insufficiency (chronic) (peripheral) (principal); R60.9 Edema, unspecified
CPT/HCPCS: 36415; 51702; 82803; 96365; 99284; J1940

== ENCOUNTER 2023-11-01 05:41 | Inpatient (IN) | payer OTHER ==
[~2023-11-01] VITALS: Ht 63.5 cm; Wt 113.4 kg
[2023-11-01 08:12] LABS: HEMATOCRIT 31.4 % (36.0-45.00); HEMOGLOBIN 10.7 g/dL (12.0-15.00); MEAN CELL VOLUME 89.6 fL (80.00-100.00); MEAN CORPUSCULAR HEMOGLOBIN 30.5 pg (27.00-32.0); PLATELET COUNT 228 K/uL (150-450); RED CELL DISTRIBUTION WIDTH 14.6 % (11.5-14.5)
[2023-11-01 08:29] LABS: ALBUMIN 3.4 gm/dL (3.4-5.0); BILIRUBIN TOTAL 0.6 mg/dL (0.3-1.2); CALCIUM 9.6 mg/dL (8.5-10.1); CREATININE SERUM 0.88 mg/dL (0.55-1.02); GFR 62.99; GLOBULINA 5.2 G/DL (2.4-3.5); POTASSIUM 4.75 mEq/L (3.5-5.1); TOTAL PROTEIN 8.6 gm/dL (6.4-8.2)
[2023-11-01 11:55] LABS: URINE APPEARANCE Turbid; URINE BILIRRUBIN Negative (NEGATIVE); URINE BLOOD Moderate; URINE COLOR Yellow; URINE LEUKOCYTE Large; URINE NITRATE Negative; URINE UROBILINOGEN 0.2 E.U./dl
[2023-11-01 11:59] LABS: URINE EPITHELIAL CELLS 84.4 uL (0.0-38.8); URINE RBC 52.5 uL (0.0-20.8)
[2023-11-01 13:03] LABS: URINE BACTERIA > 5548.3 uL (0.0-1933); URINE GLUCOSE 250 MG/DL (NEGATIVE); URINE MUCUS HEAVY; URINE PROTEIN 300 (NEGATIVE); URINE WBC > 5548.3 uL (0.0-23.2); URINE YEAST NEGATIVE /hpf
[2023-11-01 20:03] LABS: AMYLASE 60 U/L (25-115); LIPASE 14 U/L (13-75)
[2023-11-02 02:34] LABS: INR 1.14; PARTIAL THROMBOPLASTIN TIME 31.3 SECONDS (22.0-34.0); PROTHROMBIN TIME 11.9 SECONDS (9.0-11.5)
[2023-11-02 14:40] LABS: PHOSPHOKINASE CREATININE 23 U/L (26-192)
[2023-11-02 14:47] LABS: CKMB < 1.0 NG/ML (0.5-3.6)
[2023-11-02 15:59] LABS: CALCIUM 8.3 mg/dL (8.5-10.1); CHOL HDL RATIO 2.4 (0-5.0); CREATININE SERUM 1.31 mg/dL (0.55-1.02); GFR 39.8; POTASSIUM 4.44 mEq/L (3.5-5.1)
[2023-11-02 22:36] LABS: HEMOGLOBIN 10.3 g/dL (12.0-15.00); MEAN CELL VOLUME 89.8 fL (80.00-100.00); MEAN CORPUSCULAR HEMOGLOBIN 29.7 pg (27.00-32.0); MEAN CORPUSCULAR HGB CONC 33.1 g/dl (32.0-36.0); PLATELET COUNT 181 K/uL (150-450); RED BLOOD COUNT 3.45 M/uL (4.00-6.00); RED CELL DISTRIBUTION WIDTH 14.8 % (11.5-14.5)
[2023-11-02 22:45] LABS: PHOSPHOKINASE CREATININE 25 U/L (26-192)
[2023-11-02 22:46] LABS: CKMB < 1.0 NG/ML (0.5-3.6)
[2023-11-03 07:01] LABS: HEMATOCRIT 29.8 % (36.0-45.00); MEAN CELL VOLUME 91.2 fL (80.00-100.00); MEAN CORPUSCULAR HEMOGLOBIN 30.7 pg (27.00-32.0); MEAN CORPUSCULAR HGB CONC 33.7 g/dl (32.0-36.0); PLATELET COUNT 176 K/uL (150-450); RED BLOOD COUNT 3.27 M/uL (4.00-6.00); RED CELL DISTRIBUTION WIDTH 14.8 % (11.5-14.5)
[2023-11-03 07:05] LABS: ALBUMIN 2.4 gm/dL (3.4-5.0); BILIRUBIN TOTAL 0.8 mg/dL (0.3-1.2); CALCIUM 8.3 mg/dL (8.5-10.1); CREATININE SERUM 1.28 mg/dL (0.55-1.02); GFR 40.87; GLOBULINA 4.1 G/DL (2.4-3.5); MAGNESIUM 1.8 mg/dL (1.8-2.4); PHOSPHOROUS 2.7 mg/dL (2.5-4.9); POTASSIUM 4.41 mEq/L (3.5-5.1); TOTAL PROTEIN 6.5 gm/dL (6.4-8.2)
[2023-11-03 07:06] LABS: PHOSPHOKINASE CREATININE 21 U/L (26-192)
[2023-11-03 07:07] LABS: CKMB < 1.0 NG/ML (0.5-3.6)
[2023-11-04 14:56] LABS: PH,URINE 5.5; URINE BILIRRUBIN SMALL (NEGATIVE); URINE BLOOD SMALL; URINE LEUKOCYTE NEGATIVE; URINE NITRATE NEGATIVE; URINE PROTEIN 30 (NEGATIVE); URINE UROBILINOGEN 0.2 E.U./dl
[2023-11-04 15:01] LABS: URINE APPEARANCE SL CLOUDY; URINE COLOR YELLOW; URINE GLUCOSE 500 MG/DL (NEGATIVE)
[2023-11-04 15:06] LABS: URINE BACTERIA MODERATE; URINE CRYSTALS MANY /HPF; URINE MUCUS SCANT; URINE SPERM A
[2023-11-05 06:22] LABS: HEMATOCRIT 23.9 % (36.0-45.00); MEAN CELL VOLUME 90.5 fL (80.00-100.00); MEAN CORPUSCULAR HEMOGLOBIN 31.4 pg (27.00-32.0); MEAN CORPUSCULAR HGB CONC 34.7 g/dl (32.0-36.0); PLATELET COUNT 178 K/uL (150-450); RED BLOOD COUNT 2.64 M/uL (4.00-6.00); RED CELL DISTRIBUTION WIDTH 14.3 % (11.5-14.5)
[2023-11-05 06:31] LABS: HEMOGLOBIN 8.3 g/dL (12.0-15.00)
[2023-11-05 07:05] LABS: ALBUMIN 1.8 gm/dL (3.4-5.0); ALKALINE PHOSPHATASE 85 U/L (50-136); ALT/SGPT 17 U/L (12-78); ANION GAP 9 (10.0-20.0); AST/SGOT 13 U/L (15-37); BILIRUBIN TOTAL 0.41 mg/dL (0.3-1.2); BLOOD UREA NITROGEN 60 mg/dL (7-18); BUN CREA RATIO 55 (7.0-25.0); CARBON DIOXIDE 26 mEq/L (21-32); CHLORIDE 104 mmol/L (98-107); GFR 48.69; GLOBULINA 3.8 G/DL (2.4-3.5); GLUCOSE FASTING 170 mg/dL (65-100); OSMOLALITY SERUM 291 MOSM/KG (275-295); PHOSPHOROUS 2.5 mg/dL (2.5-4.9); POTASSIUM 3.89 mEq/L (3.5-5.1); SODIUM 135 mmol/L (136-145); TOTAL PROTEIN 5.6 gm/dL (6.4-8.2)
[2023-11-05 07:17] LABS: CKMB < 1.0 NG/ML (0.5-3.6); PHOSPHOKINASE CREATININE 15 U/L (26-192)
[2023-11-05 23:29] LABS: ob NEGATIVE (NEGATIVE)
[2023-11-07 07:49] LABS: ALBUMIN 2.4 gm/dL (3.4-5.0); BILIRUBIN TOTAL 0.27 mg/dL (0.3-1.2); CALCIUM 8.4 mg/dL (8.5-10.1); CREATININE SERUM 0.83 mg/dL (0.55-1.02); GFR 67.38; GLOBULINA 3.8 G/DL (2.4-3.5); POTASSIUM 4.9 mEq/L (3.5-5.1); T4 TOTAL 5.85 UG/DL (4.8-13.9); TOTAL PROTEIN 6.2 gm/dL (6.4-8.2)
[2023-11-07 07:53] LABS: TSH 0.308 uIU/mL (0.358-3.74)
[2023-11-08 07:28] LABS: INR 1.07; PARTIAL THROMBOPLASTIN TIME 35.7 SECONDS (22.0-34.0); PROTHROMBIN TIME 11.2 SECONDS (9.0-11.5)
[2023-11-08 07:34] LABS: HEMATOCRIT 27.4 % (36.0-45.00); HEMOGLOBIN 9.2 g/dL (12.0-15.00); MEAN CELL VOLUME 92.4 fL (80.00-100.00); MEAN CORPUSCULAR HEMOGLOBIN 30.8 pg (27.00-32.0); MEAN CORPUSCULAR HGB CONC 33.4 g/dl (32.0-36.0); PLATELET COUNT 244 K/uL (150-450); RED BLOOD COUNT 2.97 M/uL (4.00-6.00); RED CELL DISTRIBUTION WIDTH 14.4 % (11.5-14.5)
[2023-11-08 07:35] LABS: ALBUMIN 2.3 gm/dL (3.4-5.0); BILIRUBIN TOTAL 0.29 mg/dL (0.3-1.2); BILIRUBIN,CONJUGATED 0.13 mg/dL (0.0-0.2); BILIRUBIN,UNCONJUGATED 0.16 mg/dL (0.0-0.6); CALCIUM 8.5 mg/dL (8.5-10.1); CHOL HDL RATIO 5.1 (0-5.0); CREATININE SERUM 0.81 mg/dL (0.55-1.02); GFR 69.31; GLOBULINA 3.8 G/DL (2.4-3.5); MAGNESIUM 2.1 mg/dL (1.8-2.4); POTASSIUM 4.82 mEq/L (3.5-5.1); TOTAL PROTEIN 6.1 gm/dL (6.4-8.2)
[2023-11-09 06:23] LABS: PH,URINE 5.5 (5.0-8.0); URINE APPEARANCE Clear; URINE BILIRRUBIN Negative (NEGATIVE); URINE BLOOD Negative; URINE COLOR Yellow; URINE GLUCOSE Negative (NEGATIVE); URINE LEUKOCYTE Negative; URINE NITRATE Negative; URINE PROTEIN 30 (NEGATIVE); URINE UROBILINOGEN 0.2 E.U./dl
[2023-11-09 06:26] LABS: URINE BACTERIA 11.3 uL (0.0-1933); URINE EPITHELIAL CELLS 3.5 uL (0.0-38.8); URINE RBC 21.9 uL (0.0-20.8); URINE WBC 15.1 uL (0.0-23.2)
[2023-11-09 07:31] LABS: HEMATOCRIT 27.7 % (36.0-45.00); HEMOGLOBIN 9.2 g/dL (12.0-15.00); MEAN CELL VOLUME 92.4 fL (80.00-100.00); MEAN CORPUSCULAR HEMOGLOBIN 30.8 pg (27.00-32.0); MEAN CORPUSCULAR HGB CONC 33.4 g/dl (32.0-36.0); PLATELET COUNT 222 K/uL (150-450); RED CELL DISTRIBUTION WIDTH 14.6 % (11.5-14.5)
[2023-11-09 15:52] LABS: ABG PH 7.416 (7.35-7.45); ABG pCO2 35.8 mmHg (35-45); BASE EXCESS -1.5 mmol/l; BICARBONATE 22.5 mmol/l (23-25); SaO2 96.4 %; Tco2 23.6 mmol/l
[2023-11-09 15:53] LABS: allen test SATISFACTORY; o2 21 %; puncture site RADIAL RIGHT
[2023-11-10 06:52] LABS: HEMATOCRIT 26.3 % (36.0-45.00); MEAN CELL VOLUME 92.4 fL (80.00-100.00); MEAN CORPUSCULAR HGB CONC 33.3 g/dl (32.0-36.0); PLATELET COUNT 231 K/uL (150-450); RED BLOOD COUNT 2.84 M/uL (4.00-6.00); RED CELL DISTRIBUTION WIDTH 14.6 % (11.5-14.5)
[2023-11-10 06:55] LABS: MEAN CORPUSCULAR HEMOGLOBIN 30.6 pg (27.00-32.0)
[2023-11-10 06:56] LABS: HEMOGLOBIN 8.7 g/dL (12.0-15.00)
[2023-11-10 07:05] LABS: ALBUMIN 2.1 gm/dL (3.4-5.0); BILIRUBIN TOTAL 0.35 mg/dL (0.3-1.2); CALCIUM 8.3 mg/dL (8.5-10.1); CREATININE SERUM 0.66 mg/dL (0.55-1.02); GFR 87.79; GLOBULINA 3.5 G/DL (2.4-3.5); POTASSIUM 4.96 mEq/L (3.5-5.1); TOTAL PROTEIN 5.6 gm/dL (6.4-8.2)
[2023-11-12 20:58] LABS: HEMATOCRIT 29.9 % (36.0-45.00); MEAN CELL VOLUME 90.1 fL (80.00-100.00); MEAN CORPUSCULAR HEMOGLOBIN 30.2 pg (27.00-32.0); MEAN CORPUSCULAR HGB CONC 33.6 g/dl (32.0-36.0); PLATELET COUNT 212 K/uL (150-450); RED BLOOD COUNT 3.32 M/uL (4.00-6.00); RED CELL DISTRIBUTION WIDTH 15.2 % (11.5-14.5)
[2023-11-13 08:26] LABS: HEMATOCRIT 31.2 % (36.0-45.00); HEMOGLOBIN 10.6 g/dL (12.0-15.00); MEAN CELL VOLUME 89.4 fL (80.00-100.00); MEAN CORPUSCULAR HEMOGLOBIN 30.4 pg (27.00-32.0); PLATELET COUNT 215 K/uL (150-450); RED BLOOD COUNT 3.49 M/uL (4.00-6.00)
[2023-11-13 08:27] LABS: ALBUMIN 2.3 gm/dL (3.4-5.0); BILIRUBIN TOTAL 0.78 mg/dL (0.3-1.2); CALCIUM 8.5 mg/dL (8.5-10.1); CREATININE SERUM 0.76 mg/dL (0.55-1.02); GFR 74.6; GLOBULINA 4.2 G/DL (2.4-3.5); MAGNESIUM 1.6 mg/dL (1.8-2.4); PHOSPHOROUS 3.7 mg/dL (2.5-4.9); POTASSIUM 4.82 mEq/L (3.5-5.1); TOTAL PROTEIN 6.5 gm/dL (6.4-8.2)
[2023-11-14 07:47] LABS: HEMATOCRIT 29.5 % (36.0-45.00); HEMOGLOBIN 9.9 g/dL (12.0-15.00); MEAN CELL VOLUME 90.3 fL (80.00-100.00); MEAN CORPUSCULAR HEMOGLOBIN 30.3 pg (27.00-32.0); MEAN CORPUSCULAR HGB CONC 33.5 g/dl (32.0-36.0); PLATELET COUNT 216 K/uL (150-450); RED BLOOD COUNT 3.27 M/uL (4.00-6.00); RED CELL DISTRIBUTION WIDTH 15.1 % (11.5-14.5)
[2023-11-14 12:10] LABS: ABG PH 7.362 (7.35-7.45); ABG PO2 188.6 mmHg (80-100); ABG pCO2 49.6 mmHg (35-45); BASE EXCESS 1.3 mmol/l; BICARBONATE 27.5 mmol/l (23-25); SaO2 99.6 %
[2023-11-14 12:11] LABS: Tco2 29.1 mmol/l; allen test SATISFACTORY; o2 100 %; puncture site RADIAL LEFT
[2023-11-14 14:09] LABS: URINE APPEARANCE Turbid; URINE BILIRRUBIN Small (NEGATIVE); URINE BLOOD Negative; URINE COLOR Dark Yellow; URINE GLUCOSE Negative (NEGATIVE); URINE LEUKOCYTE Small; URINE NITRATE Negative
[2023-11-14 14:13] LABS: URINE BACTERIA 209.1 uL (0.0-1933); URINE WBC 135.4 uL (0.0-23.2)
[2023-11-14 14:42] LABS: URINE PROTEIN 100 (NEGATIVE)
[2023-11-14 14:43] LABS: URINE CRYSTALS FEW /HPF
[2023-11-15 07:43] LABS: HEMOGLOBIN 10.3 g/dL (12.0-15.00); MEAN CELL VOLUME 91.8 fL (80.00-100.00); MEAN CORPUSCULAR HEMOGLOBIN 30.4 pg (27.00-32.0); MEAN CORPUSCULAR HGB CONC 33.1 g/dl (32.0-36.0); PLATELET COUNT 245 K/uL (150-450); RED BLOOD COUNT 3.37 M/uL (4.00-6.00)
[2023-11-15 08:02] LABS: INR 1.04; PARTIAL THROMBOPLASTIN TIME 37.7 SECONDS (22.0-34.0); PROTHROMBIN TIME 10.9 SECONDS (9.0-11.5)
[2023-11-15 08:38] LABS: ALBUMIN 2.3 gm/dL (3.4-5.0); CALCIUM 8.7 mg/dL (8.5-10.1); CREATININE SERUM 1.12 mg/dL (0.55-1.02); GFR 47.68; MAGNESIUM 2.2 mg/dL (1.8-2.4); PHOSPHOROUS 3.9 mg/dL (2.5-4.9); POTASSIUM 5.24 mEq/L (3.5-5.1)
[2023-11-15 10:08] LABS: ALBUMIN 2.3 gm/dL (3.4-5.0); BILIRUBIN TOTAL 0.46 mg/dL (0.3-1.2); BILIRUBIN,CONJUGATED 0.16 mg/dL (0.0-0.2); BILIRUBIN,UNCONJUGATED 0.3 mg/dL (0.0-0.6); CALCIUM 8.8 mg/dL (8.5-10.1); CHOL HDL RATIO 4.2 (0-5.0); CREATININE SERUM 1.08 mg/dL (0.55-1.02); GFR 49.73; GLOBULINA 4.5 G/DL (2.4-3.5); MAGNESIUM 2.3 mg/dL (1.8-2.4); POTASSIUM 4.96 mEq/L (3.5-5.1); TOTAL PROTEIN 6.8 gm/dL (6.4-8.2)
[2023-11-17 07:57] LABS: HEMOGLOBIN 9.6 g/dL (12.0-15.00); MEAN CELL VOLUME 90.2 fL (80.00-100.00); MEAN CORPUSCULAR HEMOGLOBIN 29.9 pg (27.00-32.0); MEAN CORPUSCULAR HGB CONC 33.1 g/dl (32.0-36.0); PLATELET COUNT 234 K/uL (150-450); RED BLOOD COUNT 3.22 M/uL (4.00-6.00)
[2023-11-17 08:53] LABS: ALBUMIN 2.5 gm/dL (3.4-5.0); BILIRUBIN TOTAL 0.35 mg/dL (0.3-1.2); CALCIUM 8.7 mg/dL (8.5-10.1); CREATININE SERUM 1.14 mg/dL (0.55-1.02); GFR 46.72; GLOBULINA 4.5 G/DL (2.4-3.5); MAGNESIUM 2.6 mg/dL (1.8-2.4)
[2023-11-17 09:30] LABS: C-REACTIVE PROTEIN 8.51 MG/DL (0.00-0.29); POTASSIUM 6.34 mEq/L (3.5-5.1)
[2023-11-17 15:04] LABS: CREATININE SERUM 1.15 mg/dL (0.55-1.02); GFR 46.25
[2023-11-17 15:08] LABS: POTASSIUM 5.95 mEq/L (3.5-5.1)
[2023-11-17 23:49] LABS: D DIMER 2.14 MG/L; FERRITIN 834.6 NG/ML (8-252)
[2023-11-18 14:02] LABS: HEMATOCRIT 34.7 % (36.0-45.00); HEMOGLOBIN 11.4 g/dL (12.0-15.00); MEAN CELL VOLUME 92.4 fL (80.00-100.00); MEAN CORPUSCULAR HEMOGLOBIN 30.3 pg (27.00-32.0); MEAN CORPUSCULAR HGB CONC 32.8 g/dl (32.0-36.0); PLATELET COUNT 274 K/uL (150-450); RED BLOOD COUNT 3.75 M/uL (4.00-6.00); RED CELL DISTRIBUTION WIDTH 15.1 % (11.5-14.5)
[2023-11-18 14:32] LABS: ALBUMIN 2.8 gm/dL (3.4-5.0); BILIRUBIN TOTAL 0.48 mg/dL (0.3-1.2); CALCIUM 9.4 mg/dL (8.5-10.1); CREATININE SERUM 0.86 mg/dL (0.55-1.02); GFR 64.68; GLOBULINA 5.1 G/DL (2.4-3.5); MAGNESIUM 2.1 mg/dL (1.8-2.4); PHOSPHOROUS 3.9 mg/dL (2.5-4.9); TOTAL PROTEIN 7.9 gm/dL (6.4-8.2)
[2023-11-18 14:39] LABS: POTASSIUM 5.98 mEq/L (3.5-5.1)
[2023-11-18 19:04] LABS: PLEURAL FLUID COLOR YELLOW
[2023-11-18 19:06] LABS: PLEURAL FLUID APPEARANCE CLOUDY
[2023-11-18 19:49] LABS: POLYMORPHONUCLEAR 14 %
[2023-11-18 19:50] LABS: MONONUCLEAR 86 %
[2023-11-20 08:21] LABS: HEMATOCRIT 34.1 % (36.0-45.00); HEMOGLOBIN 11.3 g/dL (12.0-15.00); MEAN CELL VOLUME 91.8 fL (80.00-100.00); MEAN CORPUSCULAR HEMOGLOBIN 30.4 pg (27.00-32.0); MEAN CORPUSCULAR HGB CONC 33.1 g/dl (32.0-36.0); PLATELET COUNT 266 K/uL (150-450); RED BLOOD COUNT 3.71 M/uL (4.00-6.00); RED CELL DISTRIBUTION WIDTH 15.1 % (11.5-14.5)
[2023-11-20 10:57] LABS: ALBUMIN 2.2 gm/dL (3.4-5.0); BILIRUBIN TOTAL 0.29 mg/dL (0.3-1.2); CKMB 1.3 NG/ML (0.5-3.6); CREATININE SERUM 0.68 mg/dL (0.55-1.02); FERRITIN 599.3 NG/ML (8-252); GFR 84.81; GLOBULINA 3.8 G/DL (2.4-3.5); POTASSIUM 5.89 mEq/L (3.5-5.1)
[2023-11-20 13:30] LABS: MAGNESIUM 1.7 mg/dL (1.8-2.4); PHOSPHOROUS 4.4 mg/dL (2.5-4.9)
[2023-11-20 14:25] LABS: C-REACTIVE PROTEIN 1.81 MG/DL (0.00-0.29); FERRITIN 592.9 NG/ML (8-252)
[2023-11-21 07:31] LABS: ALBUMIN 2.4 gm/dL (3.4-5.0); BILIRUBIN TOTAL 0.39 mg/dL (0.3-1.2); CALCIUM 8.5 mg/dL (8.5-10.1); CREATININE SERUM 0.75 mg/dL (0.55-1.02); GFR 75.75; GLOBULINA 3.8 G/DL (2.4-3.5); POTASSIUM 5.98 mEq/L (3.5-5.1); TOTAL PROTEIN 6.2 gm/dL (6.4-8.2)
[2023-11-21 08:22] LABS: MAGNESIUM 1.7 mg/dL (1.8-2.4)
[2023-11-21 10:39] LABS: FERRITIN 661.8 NG/ML (8-252)
[2023-11-22 07:05] LABS: HEMATOCRIT 32.9 % (36.0-45.00); HEMOGLOBIN 11.1 g/dL (12.0-15.00); MEAN CELL VOLUME 90.4 fL (80.00-100.00); MEAN CORPUSCULAR HEMOGLOBIN 30.6 pg (27.00-32.0); MEAN CORPUSCULAR HGB CONC 33.8 g/dl (32.0-36.0); PLATELET COUNT 242 K/uL (150-450); RED BLOOD COUNT 3.64 M/uL (4.00-6.00); RED CELL DISTRIBUTION WIDTH 14.9 % (11.5-14.5)
[2023-11-22 07:33] LABS: ALBUMIN 2.8 gm/dL (3.4-5.0); BILIRUBIN TOTAL 0.52 mg/dL (0.3-1.2); CREATININE SERUM 0.71 mg/dL (0.55-1.02); GFR 80.69; INR 1.09; MAGNESIUM 2.3 mg/dL (1.8-2.4); PARTIAL THROMBOPLASTIN TIME 27.8 SECONDS (22.0-34.0); PHOSPHOROUS 3.7 mg/dL (2.5-4.9); POTASSIUM 5.06 mEq/L (3.5-5.1); PROTHROMBIN TIME 11.4 SECONDS (9.0-11.5); TOTAL PROTEIN 6.8 gm/dL (6.4-8.2)
[2023-11-22 08:01] LABS: ALBUMIN 2.9 gm/dL (3.4-5.0); BILIRUBIN TOTAL 0.51 mg/dL (0.3-1.2); BILIRUBIN,CONJUGATED 0.17 mg/dL (0.0-0.2); BILIRUBIN,UNCONJUGATED 0.34 mg/dL (0.0-0.6); CHOL HDL RATIO 2.4 (0-5.0); TOTAL PROTEIN 6.7 gm/dL (6.4-8.2)
[2023-11-23 07:17] LABS: FERRITIN 726.7 NG/ML (8-252)
[2023-11-25] MEDS ORDERED: ELIQUIS5 MG PO (19:45)
[2023-11-25] MEDS ORDERED: AVAPRO150 MG PO (19:46)
[2023-11-25] MEDS ORDERED: TOPROL XL100 M1 PO (19:47)
[2023-11-25] MEDS ORDERED: SYNTHROID100 MCG PO (19:48)
[2023-11-25] MEDS ORDERED: PROCARDIA XL90 MG PO (19:48)
[2023-11-25] MEDS ORDERED: LASIX20 MG PO (19:49)
== END 2023-11-25 20:11 | disposition home or self-care (01) | DRG 444 ==
LOC: ER 05:41 → SURH 23:57 → MEDJ 11-09 14:29 → MEDI 11-10 08:46 → MEDJ 11-17 17:33
PROVIDERS: General Practice; Internal Medicine; Internal Medicine Endocrinology, Diabetes & Metabolism; Internal Medicine Infectious Disease; Radiology Vascular & Interventional Radiology; ADMIT Internal Medicine; ATTEND Internal Medicine
PROC: BW21ZZZ Computerized Tomography (CT Scan) of Abdomen and Pelvis (ICD-10-PCS; principal; 2023-11-01)
PROC: BW40ZZZ Ultrasonography of Abdomen (ICD-10-PCS; 2023-11-01)
PROC: B246ZZZ Ultrasonography of Right and Left Heart (ICD-10-PCS; 2023-11-02)
PROC: CF2YYZZ Tomographic (Tomo) Nuclear Medicine Imaging of Hepatobiliary System and Pancreas using Other Radionuclide (ICD-10-PCS; 2023-11-02)
PROC: 02HV33Z Insertion of Infusion Device into Superior Vena Cava, Percutaneous Approach (ICD-10-PCS; 2023-11-03)
PROC: 0F943ZZ Drainage of Gallbladder, Percutaneous Approach (ICD-10-PCS; 2023-11-04)
PROC: BW40ZZZ Ultrasonography of Abdomen (ICD-10-PCS; 2023-11-09)
PROC: 30233N1 Transfusion of Nonautologous Red Blood Cells into Peripheral Vein, Percutaneous Approach (ICD-10-PCS; 2023-11-11)
PROC: 4A12X4Z Monitoring of Cardiac Electrical Activity, External Approach (ICD-10-PCS; 2023-11-12)
PROC: BB24Y0Z Computerized Tomography (CT Scan) of Bilateral Lungs using Other Contrast, Unenhanced and Enhanced (ICD-10-PCS; 2023-11-16)
PROC: 0W993ZZ Drainage of Right Pleural Cavity, Percutaneous Approach (ICD-10-PCS; 2023-11-17)
PROC: 5A09457 Assistance with Respiratory Ventilation, 24-96 Consecutive Hours, Continuous Positive Airway Pressure (ICD-10-PCS; 2023-11-17)
PROC: 3E0F7GC Introduction of Other Therapeutic Substance into Respiratory Tract, Via Natural or Artificial Opening (ICD-10-PCS; 2023-11-17)
PROC: 0JBQ3ZZ Excision of Right Foot Subcutaneous Tissue and Fascia, Percutaneous Approach (ICD-10-PCS; 2023-11-17)
DX: K81.0 Acute cholecystitis (principal); U07.1 COVID-19; J90 Pleural effusion, not elsewhere classified; L97.518 Non-pressure chronic ulcer of other part of right foot with other specified severity; N39.0 Urinary tract infection, site not specified; Z68.42 Body mass index [BMI] 45.0-49.9, adult; E11.52 Type 2 diabetes mellitus with diabetic peripheral angiopathy with gangrene; I96 Gangrene, not elsewhere classified; R63.0 Anorexia; I11.0 Hypertensive heart disease with heart failure; I50.9 Heart failure, unspecified; E11.65 Type 2 diabetes mellitus with hyperglycemia; E03.9 Hypothyroidism, unspecified; E11.621 Type 2 diabetes mellitus with foot ulcer; D64.9 Anemia, unspecified; D72.828 Other elevated white blood cell count; G47.33 Obstructive sleep apnea (adult) (pediatric); I11.9 Hypertensive heart disease without heart failure; I25.10 Atherosclerotic heart disease of native coronary artery without angina pectoris; E66.01 Morbid (severe) obesity due to excess calories; Z79.4 Long term (current) use of insulin; J44.9 Chronic obstructive pulmonary disease, unspecified; I87.2 Venous insufficiency (chronic) (peripheral); L08.89 Other specified local infections of the skin and subcutaneous tissue; B96.5 Pseudomonas (aeruginosa) (mallei) (pseudomallei) as the cause of diseases classified elsewhere

== ENCOUNTER 2023-12-14 11:21 | Emergency (ER) | payer OTHER ==
[~2023-12-14] VITALS: Ht 162.6 cm; Wt 90.7 kg
[~2023-12-14 11:21] MED LIST changes: +AVAPRO150 MG PO; +LASIX20 MG PO; +PROCARDIA XL90 MG PO; +SYNTHROID100 MCG PO
[2023-12-14] MEDS ORDERED: 0.9 % SODIUM CHLORIDE 1,000 ML IV STA (12:34)
[2023-12-14 13:47] LABS: HEMATOCRIT 31.8 % (36.0-45.00); HEMOGLOBIN 10.8 g/dL (12.0-15.00); MEAN CELL VOLUME 88.7 fL (80.00-100.00); MEAN CORPUSCULAR HEMOGLOBIN 30.2 pg (27.00-32.0); PLATELET COUNT 264 K/uL (150-450); RED BLOOD COUNT 3.58 M/uL (4.00-6.00)
[2023-12-14 14:17] LABS: ALBUMIN 2.6 gm/dL (3.4-5.0); BILIRUBIN TOTAL 0.29 mg/dL (0.3-1.2); BILIRUBIN,CONJUGATED 0.1 mg/dL (0.0-0.2); BILIRUBIN,UNCONJUGATED 0.19 mg/dL (0.0-0.6); CALCIUM 9.4 mg/dL (8.5-10.1); CREATININE SERUM 1.17 mg/dL (0.55-1.02); GFR 45.34; POTASSIUM 4.99 mEq/L (3.5-5.1); TOTAL PROTEIN 7.4 gm/dL (6.4-8.2)
[2023-12-14 18:30] LABS: PH,URINE 6.5 (5.0-8.0); URINE APPEARANCE Cloudy; URINE BILIRRUBIN Negative (NEGATIVE); URINE BLOOD Small; URINE COLOR Yellow; URINE GLUCOSE Negative (NEGATIVE); URINE LEUKOCYTE Large; URINE NITRATE Negative; URINE PROTEIN 30 (NEGATIVE); URINE UROBILINOGEN 0.2 E.U./dl
[2023-12-14 18:34] LABS: URINE EPITHELIAL CELLS 27.3 uL (0.0-38.8); URINE RBC 10.3 uL (0.0-20.8); URINE WBC 1291.4 uL (0.0-23.2)
[2023-12-14 18:37] LABS: URINE BACTERIA > 9821.5 uL (0.0-1933)
== END 2023-12-14 21:03 | disposition home or self-care (01) ==
LOC: ER 11:21
PROVIDERS: General Practice
DX: R10.9 Unspecified abdominal pain (principal); Z79.84 Long term (current) use of oral hypoglycemic drugs; Z91.018 Allergy to other foods; Z88.8 Allergy status to other drugs, medicaments and biological substances; E11.9 Type 2 diabetes mellitus without complications; Z79.4 Long term (current) use of insulin; Z89.439 Acquired absence of unspecified foot
CPT/HCPCS: 36415; 71046; 74176; 93005; 96365; 96366; 99284; J7030

== ENCOUNTER 2024-01-06 10:42 | Emergency (ER) | payer OTHER ==
[~2024-01-06] VITALS: Ht 160 cm; Wt 85.3 kg
[2024-01-06 12:08] LABS: HEMATOCRIT 32.1 % (36.0-45.00); MEAN CELL VOLUME 89.7 fL (80.00-100.00); MEAN CORPUSCULAR HEMOGLOBIN 30.8 pg (27.00-32.0); MEAN CORPUSCULAR HGB CONC 34.4 g/dl (32.0-36.0); PLATELET COUNT 250 K/uL (150-450); RED BLOOD COUNT 3.57 M/uL (4.00-6.00); RED CELL DISTRIBUTION WIDTH 14.9 % (11.5-14.5)
[2024-01-06 12:48] LABS: CALCIUM 9.1 mg/dL (8.5-10.1); CREATININE SERUM 0.97 mg/dL (0.55-1.02); GFR 56.29; POTASSIUM 4.74 mEq/L (3.5-5.1)
== END 2024-01-06 15:41 | disposition home or self-care (01) ==
LOC: ER 10:42
PROVIDERS: Emergency Medicine
DX: T85.698A Other mechanical complication of other specified internal prosthetic devices, implants and grafts, initial encounter (principal); Z88.8 Allergy status to other drugs, medicaments and biological substances; I49.8 Other specified cardiac arrhythmias; I10 Essential (primary) hypertension; E78.00 Pure hypercholesterolemia, unspecified; E11.9 Type 2 diabetes mellitus without complications; Z79.4 Long term (current) use of insulin

== ENCOUNTER 2024-01-23 20:08 | Emergency (ER) | payer OTHER ==
[~2024-01-23] VITALS: Ht 162.6 cm; Wt 95.3 kg
[2024-01-23 21:59] LABS: HEMATOCRIT 26.2 % (36.0-45.00); HEMOGLOBIN 9.1 g/dL (12.0-15.00); MEAN CELL VOLUME 89.9 fL (80.00-100.00); MEAN CORPUSCULAR HEMOGLOBIN 31.1 pg (27.00-32.0); MEAN CORPUSCULAR HGB CONC 34.5 g/dl (32.0-36.0); PLATELET COUNT 233 K/uL (150-450); RED BLOOD COUNT 2.92 M/uL (4.00-6.00); RED CELL DISTRIBUTION WIDTH 14.2 % (11.5-14.5)
[2024-01-23 22:20] LABS: ALBUMIN 2.9 gm/dL (3.4-5.0); ALKALINE PHOSPHATASE 94 U/L (50-136); ALT/SGPT 10 U/L (12-78); AMYLASE 29 U/L (25-115); ANION GAP 8 (10.0-20.0); AST/SGOT 9 U/L (15-37); BILIRUBIN TOTAL 0.19 mg/dL (0.3-1.2); BILIRUBIN,CONJUGATED < 0.10 mg/dL (0.0-0.2); BILIRUBIN,UNCONJUGATED 0.09 mg/dL (0.0-0.6); BLOOD UREA NITROGEN 25 mg/dL (7-18); BUN CREA RATIO 22 (7.0-25.0); CALCIUM 8.9 mg/dL (8.5-10.1); CARBON DIOXIDE 28 mEq/L (21-32); CHLORIDE 108 mmol/L (98-107); CREATININE SERUM 1.13 mg/dL (0.55-1.02); GLOBULINA 4.7 G/DL (2.4-3.5); GLUCOSE FASTING 132 mg/dL (65-100); LIPASE 17 U/L (13-75); OSMOLALITY SERUM 286 MOSM/KG (275-295); SODIUM 140 mmol/L (136-145); TOTAL PROTEIN 7.6 gm/dL (6.4-8.2)
[2024-01-23 22:20] LABS: PH,URINE 5.5 (5.0-8.0); URINE APPEARANCE Cloudy; URINE BILIRRUBIN Negative (NEGATIVE); URINE BLOOD Small; URINE COLOR Yellow; URINE GLUCOSE Negative (NEGATIVE); URINE LEUKOCYTE Large; URINE NITRATE Negative; URINE PROTEIN Trace (NEGATIVE); URINE UROBILINOGEN 0.2 E.U./dl
[2024-01-23 22:24] LABS: URINE BACTERIA 2160.8 uL (0.0-1933); URINE EPITHELIAL CELLS 2.1 uL (0.0-38.8)
[2024-01-23] MEDS ORDERED: CEFTRIAXONE SODIUM 2,000 MG VIAL IM ONE (23:15)
== END 2024-01-24 00:45 | disposition home or self-care (01) ==
LOC: ER 20:08
PROVIDERS: Emergency Medicine
DX: K83.8 Other specified diseases of biliary tract (principal)
CPT/HCPCS: 36415; 96372; 99283; J0696

== ENCOUNTER 2024-05-06 08:45 | Emergency (ER) | payer OTHER ==
[~2024-05-06] VITALS: Ht 154.9 cm; Wt 85.7 kg
[2024-05-06] MEDS ORDERED: ONDANSETRON HCL 2 MG/ML VIAL IV ONE (09:30)
[2024-05-06] MEDS ORDERED: 0.9 % SODIUM CHLORIDE 1,000 ML IV ONE (09:30)
[2024-05-06] MEDS ORDERED: FAMOtidine 10 MG/ML (4ML VIAL) IV ONE (09:30)
[2024-05-06 10:22] LABS: HEMATOCRIT 30.6 % (36.0-45.00); HEMOGLOBIN 10.5 g/dL (12.0-15.00); MEAN CELL VOLUME 89.4 fL (80.00-100.00); MEAN CORPUSCULAR HEMOGLOBIN 30.8 pg (27.00-32.0); MEAN CORPUSCULAR HGB CONC 34.4 g/dl (32.0-36.0); PLATELET COUNT 194 K/uL (150-450); RED BLOOD COUNT 3.42 M/uL (4.00-6.00)
[2024-05-06 11:01] LABS: ALBUMIN 3.5 gm/dL (3.4-5.0); BILIRUBIN TOTAL 0.48 mg/dL (0.3-1.2); CALCIUM 9.3 mg/dL (8.5-10.1); CREATININE SERUM 0.96 mg/dL (0.55-1.02); GFR 56.97; GLOBULINA 4.1 G/DL (2.4-3.5); POTASSIUM 4.09 mEq/L (3.5-5.1); TOTAL PROTEIN 7.6 gm/dL (6.4-8.2)
[2024-05-06 11:22] LABS: INR 1.03; PARTIAL THROMBOPLASTIN TIME 29.4 SECONDS (22.0-34.0); PROTHROMBIN TIME 10.8 SECONDS (9.0-11.5)
[2024-05-06] MEDS ORDERED: INSULIN REGULAR, HUMAN 1,000 UNIT/10 ML UNITS SUBCUTANEO ONE ×2 (11:30)
== END 2024-05-06 15:32 | disposition home or self-care (01) ==
LOC: ER 08:45
PROVIDERS: General Practice
DX: K80.20 Calculus of gallbladder without cholecystitis without obstruction (principal); K52.89 Other specified noninfective gastroenteritis and colitis; I10 Essential (primary) hypertension; I73.89 Other specified peripheral vascular diseases; Z20.822 Contact with and (suspected) exposure to COVID-19
CPT/HCPCS: 36415; 74177; 93005; 96365; 96366; 99284; J1815; J2405; J3490; J7030; Q9965

== ENCOUNTER 2024-07-05 11:55 | Inpatient (IN) | payer OTHER ==
[~2024-07-05] VITALS: Ht 162.6 cm; Wt 83.0 kg
[2024-07-05] MEDS ORDERED: RINGERS SOLUTION,LACTATED 1,000 ML IV STA (13:00)
[2024-07-05 14:16] LABS: HEMATOCRIT 32.1 % (36.0-45.00); HEMOGLOBIN 10.9 g/dL (12.0-15.00); MEAN CELL VOLUME 90.5 fL (80.00-100.00); MEAN CORPUSCULAR HEMOGLOBIN 30.8 pg (27.00-32.0); PLATELET COUNT 228 K/uL (150-450); RED BLOOD COUNT 3.54 M/uL (4.00-6.00); RED CELL DISTRIBUTION WIDTH 13.3 % (11.5-14.5)
[2024-07-05 14:41] LABS: CALCIUM 9.5 mg/dL (8.5-10.1); CREATININE SERUM 1.24 mg/dL (0.55-1.02); GFR 42.28; POTASSIUM 4.41 mEq/L (3.5-5.1)
[2024-07-05 15:33] LABS: PH,URINE 5.5 (5.0-8.0); URINE APPEARANCE Clear; URINE BILIRRUBIN Negative (NEGATIVE); URINE BLOOD Trace; URINE COLOR Yellow; URINE KETONE Negative (NEGATIVE); URINE LEUKOCYTE Negative; URINE NITRATE Negative; URINE UROBILINOGEN 0.2 E.U./dl
[2024-07-05 15:37] LABS: URINE BACTERIA 13.8 uL (0.0-1933); URINE CAST 1.83 uL (0.0-1.40); URINE EPITHELIAL CELLS 4.7 uL (0.0-38.8); URINE RBC 10.8 uL (0.0-20.8); URINE WBC 4.3 uL (0.0-23.2)
[2024-07-05 16:13] LABS: URINE GLUCOSE 250 MG/DL (NEGATIVE); URINE PROTEIN 100 (NEGATIVE)
[2024-07-05] MEDS ORDERED: 0.9 % SODIUM CHLORIDE 1,000 ML IV SCH (19:00)
[2024-07-05] MEDS ORDERED: VANCOMYCIN HCL 1,000 MG VIAL IV SCH (19:03)
[2024-07-05] MEDS ORDERED: ACETAMINOPHEN 500 MG GEL..CAP PO PRN (19:15)
[2024-07-05] MEDS ORDERED: DEXTROSE 50 % IN WATER 0.5 G/ML DISP.SYRIN IV PRN (19:15)
[2024-07-05] MEDS ORDERED: INSULIN LISPRO 1,000 UNIT/10 ML UNITS SUBCUTANEO PRN (19:15)
[2024-07-05] MEDS ORDERED: hydrALAZINE HCL 25 MG TABLET PO PRN (19:15)
[2024-07-05] MEDS ORDERED: VANCOMYCIN HCL 1,000 MG VIAL ONE (19:28)
[2024-07-05] MEDS ORDERED: CEFEPIME HCL 2,000 MG VIAL ONE (19:29)
[2024-07-05 20:03] VITALS: BP 152/77
[2024-07-05] MEDS ORDERED: CEFEPIME HCL 2,000 MG in 0.9 % SODIUM CHLORIDE 100 ML IV SCH (21:00)
[2024-07-05 21:35] LABS: INR 0.97; PROTHROMBIN TIME 10.6 SECONDS (9.0-11.5)
[2024-07-06 02:00] VITALS: BP 149/73
[2024-07-06] MEDS ORDERED: METOPROLOL SUCCINATE 100 MG TAB.SR.24H PO SCH (09:00)
[2024-07-06] MEDS ORDERED: LOSARTAN/HYDROCHLOROTHIAZIDE 1 TAB TABLET PO SCH (09:00)
[2024-07-06] MEDS ORDERED: ATORVASTATIN CALCIUM 40 MG TABLET PO SCH (09:00)
[2024-07-06 09:28] VITALS: BP 164/70
[2024-07-06] MEDS ORDERED: NIFEDIPINE 30 MG TAB.SA.OSM PO SCH (12:00)
[2024-07-06] MEDS ORDERED: LACTOBACILLUS ACIDOPHILUS 1 CAP CAP PO SCH (17:00)
[2024-07-06 18:28] VITALS: BP 93/74
[2024-07-06] MEDS ORDERED: MEPERIDINE HCL/PF 25 MG/ML VIAL IV PRN (18:30)
[2024-07-06] MEDS ORDERED: PROMETHAZINE HCL 25 MG/ML AMPUL IV PRN (18:30)
[2024-07-07 00:59] VITALS: BP 143/70; O2SAT 98
[2024-07-07] MEDS ORDERED: INSULIN NPH HUMAN ISOPHANE 1,000 UNITS/10 ML UNITS SUBCUTANEO SCH (08:00)
[2024-07-07] MEDS ORDERED: INSULIN LISPRO 1,000 UNIT/10 ML UNITS SUBCUTANEO SCH ×2 (08:00→12:00)
[2024-07-07 09:37] LABS: HEMATOCRIT 29.7 % (36.0-45.00); HEMOGLOBIN 9.9 g/dL (12.0-15.00); MEAN CELL VOLUME 90.1 fL (80.00-100.00); MEAN CORPUSCULAR HEMOGLOBIN 30.2 pg (27.00-32.0); MEAN CORPUSCULAR HGB CONC 33.5 g/dl (32.0-36.0); PLATELET COUNT 215 K/uL (150-450); RED CELL DISTRIBUTION WIDTH 13.6 % (11.5-14.5)
[2024-07-07 10:17] LABS: ALBUMIN 2.9 gm/dL (3.4-5.0); BILIRUBIN TOTAL 0.56 mg/dL (0.3-1.2); CALCIUM 8.5 mg/dL (8.5-10.1); CREATININE SERUM 0.84 mg/dL (0.55-1.02); GFR 66.28; GLOBULINA 4.1 G/DL (2.4-3.5); MAGNESIUM 1.9 mg/dL (1.8-2.4); PHOSPHOROUS 2.9 mg/dL (2.5-4.9); POTASSIUM 4.03 mEq/L (3.5-5.1)
[2024-07-07 10:18] LABS: C-REACTIVE PROTEIN 11.8 MG/DL (0.00-0.29)
[2024-07-07 10:55] VITALS: BP 162/76
[2024-07-07 17:32] VITALS: BP 172/77
[2024-07-07] MEDS ORDERED: LORazepam 2 MG/ML VIAL IV ONE (20:45)
[2024-07-07] MEDS ORDERED: INSULIN GLARGINE,HUM.REC.ANLOG 1,000 UNITS/10 ML UNITS SUBCUTANEO SCH (21:00)
[2024-07-07] MEDS ORDERED: SODIUM CL 0.9% 100 ML IV.SOLN IV ONE (21:32)
[2024-07-07] MEDS ORDERED: LORazepam 2 MG/ML VIAL ONE (21:35)
[2024-07-08 02:00] VITALS: BP 162/71
[2024-07-08] MEDS ORDERED: DEXTROSE 5 % AND 0.9 % NACL 1,000 ML IV SCH (08:00)
[2024-07-08 08:52] VITALS: BP 175/69; O2SAT 99
[2024-07-08] MEDS ORDERED: GABAPENTIN 300 MG CAPSULE PO SCH (11:22)
[2024-07-08] MEDS ORDERED: KETOROLAC TROMETHAMINE 30 MG VIAL IV SCH (11:22)
[2024-07-08 17:46] VITALS: BP 191/72
[2024-07-09 02:00] VITALS: BP 155/70
[2024-07-09 08:39] LABS: HEMATOCRIT 26.8 % (36.0-45.00); HEMOGLOBIN 9.3 g/dL (12.0-15.00); MEAN CELL VOLUME 89.7 fL (80.00-100.00); MEAN CORPUSCULAR HEMOGLOBIN 31.1 pg (27.00-32.0); MEAN CORPUSCULAR HGB CONC 34.6 g/dl (32.0-36.0); PLATELET COUNT 188 K/uL (150-450); RED BLOOD COUNT 2.99 M/uL (4.00-6.00); RED CELL DISTRIBUTION WIDTH 13.1 % (11.5-14.5)
[2024-07-09 09:31] VITALS: BP 129/60; O2SAT 99
[2024-07-09] MEDS ORDERED: 0.9 % SODIUM CHLORIDE 1,000 ML IV SCH (12:00)
[2024-07-09 17:43] VITALS: BP 130/80
[2024-07-10 02:00] VITALS: BP 155/76
[2024-07-10] MEDS ORDERED: LEVOTHYROXINE SODIUM 100 MCG TABLET PO SCH (06:00)
[2024-07-10] MEDS ORDERED: IRBESARTAN 150 MG TABLET PO SCH (09:00)
[2024-07-10 09:27] VITALS: BP 158/67
[2024-07-10] MEDS ORDERED: MEROPENEM 500 MG/VIAL VIAL IV SCH (14:00)
[2024-07-10 17:46] VITALS: BP 102/52; O2SAT 96
[2024-07-10] MEDS ORDERED: SOD FERRIC GLUC COMPLX/SUCROSE 125 MG in 0.9 % SODIUM CHLORIDE 100 ML IV SCH (20:52)
[2024-07-10] MEDS ORDERED: MELATONIN 5 MG TABLET PO SCH (21:00)
[2024-07-11 02:43] VITALS: BP 143/63; O2SAT 97
[2024-07-11] MEDS ORDERED: SOD FERRIC GLUC COMPLX/SUCROSE 62.5 MG in 0.9 % SODIUM CHLORIDE 50 ML IV SCH (09:00)
[2024-07-11 09:26] VITALS: BP 147/72; O2SAT 98
[2024-07-11 09:29] LABS: HEMATOCRIT 27.8 % (36.0-45.00); MEAN CORPUSCULAR HGB CONC 34.7 g/dl (32.0-36.0); PLATELET COUNT 211 K/uL (150-450); RED BLOOD COUNT 3.12 M/uL (4.00-6.00)
[2024-07-11 09:43] LABS: HEMOGLOBIN 9.7 g/dL (12.0-15.00)
[2024-07-11 10:32] LABS: ALBUMIN 2.4 gm/dL (3.4-5.0); BILIRUBIN TOTAL 0.13 mg/dL (0.3-1.2); CALCIUM 8.6 mg/dL (8.5-10.1); CREATININE SERUM 0.78 mg/dL (0.55-1.02); GFR 72.19; MAGNESIUM 1.7 mg/dL (1.8-2.4); POTASSIUM 4.03 mEq/L (3.5-5.1); TOTAL PROTEIN 6.4 gm/dL (6.4-8.2)
[2024-07-11] MEDS ORDERED: MAGNESIUM SULFATE/D5W 100 ML IV NR (15:25)
[2024-07-11 16:15] VITALS: BP 109/63; O2SAT 94
[2024-07-12 02:00] VITALS: BP 137/79; O2SAT 95
[2024-07-12 09:45] VITALS: BP 168/62; O2SAT 96
[2024-07-12 20:50] VITALS: BP 160/80; O2SAT 95
[2024-07-13 01:48] VITALS: BP 137/52
[2024-07-13 09:02] LABS: HEMATOCRIT 26.6 % (36.0-45.00); MEAN CELL VOLUME 88.3 fL (80.00-100.00); MEAN CORPUSCULAR HEMOGLOBIN 31.5 pg (27.00-32.0); MEAN CORPUSCULAR HGB CONC 35.7 g/dl (32.0-36.0); PLATELET COUNT 224 K/uL (150-450); RED BLOOD COUNT 3.01 M/uL (4.00-6.00); RED CELL DISTRIBUTION WIDTH 12.8 % (11.5-14.5)
[2024-07-13 09:11] LABS: HEMOGLOBIN 9.5 g/dL (12.0-15.00)
[2024-07-13] MEDS ORDERED: INSULIN NPH HUMAN ISOPHANE 1,000 UNITS/10 ML UNITS SUBCUTANEO SCH (09:17)
[2024-07-13 10:13] LABS: ALBUMIN 2.4 gm/dL (3.4-5.0); BILIRUBIN TOTAL 0.27 mg/dL (0.3-1.2); CALCIUM 8.7 mg/dL (8.5-10.1); CREATININE SERUM 0.68 mg/dL (0.55-1.02); GFR 84.58; GLOBULINA 3.9 G/DL (2.4-3.5); MAGNESIUM 1.7 mg/dL (1.8-2.4); PHOSPHOROUS 3.3 mg/dL (2.5-4.9); POTASSIUM 4.18 mEq/L (3.5-5.1); TOTAL PROTEIN 6.3 gm/dL (6.4-8.2)
[2024-07-13 10:39] VITALS: BP 154/61
[2024-07-13] MEDS ORDERED: MAGNESIUM SULFATE/D5W 100 ML IV NR (12:00)
[2024-07-13] MEDS ORDERED: LACTULOSE 20 G/30 ML BLIST.PACK PO SCH (17:00)
[2024-07-13] MEDS ORDERED: MINERAL OIL 30 ML BLIST.PACK PO SCH (17:00)
[2024-07-13] MEDS ORDERED: MAGNESIUM HYDROXIDE 30 ML BLIST.PACK PO SCH (17:00)
[2024-07-13 18:40] VITALS: BP 133/51
[2024-07-14 02:24] VITALS: BP 116/66
[2024-07-14 09:43] VITALS: BP 168/70; O2SAT 99
[2024-07-14] MEDS ORDERED: VANCOMYCIN HCL 1,000 MG VIAL IV SCH (21:00)
== END 2024-07-14 18:51 | disposition home or self-care (01) | DRG 256 ==
LOC: ER 11:56 → MEDJ 19:55
PROVIDERS: General Practice; Internal Medicine; Internal Medicine Infectious Disease; Specialist; ADMIT Internal Medicine; ATTEND Internal Medicine
PROC: B44HZZZ Ultrasonography of Bilateral Lower Extremity Arteries (ICD-10-PCS; 2024-07-05)
PROC: 0Y6U0Z1 Detachment at Left 3rd Toe, High, Open Approach (ICD-10-PCS; principal; 2024-07-08 10:00)
DX: E11.52 Type 2 diabetes mellitus with diabetic peripheral angiopathy with gangrene (principal); I96 Gangrene, not elsewhere classified; L03.116 Cellulitis of left lower limb; E11.42 Type 2 diabetes mellitus with diabetic polyneuropathy; E11.65 Type 2 diabetes mellitus with hyperglycemia; K59.00 Constipation, unspecified; D64.89 Other specified anemias; I11.9 Hypertensive heart disease without heart failure; I25.10 Atherosclerotic heart disease of native coronary artery without angina pectoris; E03.9 Hypothyroidism, unspecified; Z79.4 Long term (current) use of insulin; Z88.5 Allergy status to narcotic agent; B96.1 Klebsiella pneumoniae [K. pneumoniae] as the cause of diseases classified elsewhere; B95.2 Enterococcus as the cause of diseases classified elsewhere; B96.89 Other specified bacterial agents as the cause of diseases classified elsewhere

== ENCOUNTER 2024-07-20 09:41 | Inpatient (IN) | payer OTHER ==
[~2024-07-20] VITALS: Ht 33 cm; Wt 50.3 kg
[2024-07-20] MEDS ORDERED: 0.9 % SODIUM CHLORIDE 1,000 ML IV SCH (10:30)
[2024-07-20 11:27] LABS: HEMATOCRIT 30.2 % (36.0-45.00); MEAN CORPUSCULAR HEMOGLOBIN 30.1 pg (27.00-32.0); MEAN CORPUSCULAR HGB CONC 33.1 g/dl (32.0-36.0); PLATELET COUNT 276 K/uL (150-450); RED BLOOD COUNT 3.32 M/uL (4.00-6.00); RED CELL DISTRIBUTION WIDTH 12.9 % (11.5-14.5)
[2024-07-20] MEDS ORDERED: CEFTRIAXONE SODIUM 1,000 MG in 0.9 % SODIUM CHLORIDE 100 ML IV SCH (11:43)
[2024-07-20] MEDS ORDERED: DEXTROSE 50 % IN WATER 0.5 G/ML DISP.SYRIN IV PRN (11:45)
[2024-07-20] MEDS ORDERED: ONDANSETRON HCL 4 MG in 0.9 % SODIUM CHLORIDE 50 ML IV PRN (11:45)
[2024-07-20] MEDS ORDERED: INSULIN LISPRO 1,000 UNIT/10 ML UNITS SUBCUTANEO PRN (11:45)
[2024-07-20] MEDS ORDERED: GABAPENTIN 300 MG CAPSULE PO SCH (11:51)
[2024-07-20] MEDS ORDERED: ATORVASTATIN CALCIUM 40 MG TABLET PO SCH (11:51)
[2024-07-20] MEDS ORDERED: ENALAPRILAT DIHYDRATE 1.25 MG/ML VIAL IV PRN (12:15)
[2024-07-20 12:18] LABS: INR 1.02; PARTIAL THROMBOPLASTIN TIME 29.6 SECONDS (22.0-34.0); PROTHROMBIN TIME 11.1 SECONDS (9.0-11.5)
[2024-07-20 12:29] LABS: CALCIUM 9.3 mg/dL (8.5-10.1); CREATININE SERUM 1.25 mg/dL (0.55-1.02); GFR 41.89
[2024-07-20 12:30] LABS: URINE APPEARANCE Clear; URINE BILIRRUBIN Negative (NEGATIVE); URINE BLOOD Trace; URINE COLOR Yellow; URINE KETONE Negative (NEGATIVE); URINE LEUKOCYTE Small; URINE NITRATE Negative; URINE UROBILINOGEN 0.2 E.U./dl
[2024-07-20 12:33] LABS: URINE BACTERIA 212.8 uL (0.0-1933); URINE RBC 19.3 uL (0.0-20.8); URINE WBC 73.4 uL (0.0-23.2)
[2024-07-20 12:33] LABS: POTASSIUM 6.03 mEq/L (3.5-5.1)
[2024-07-20] MEDS ORDERED: CEFTRIAXONE SODIUM 1,000 MG VIAL ONE (12:53)
[2024-07-20 13:06] LABS: URINE CAST 1.06 uL (0.0-1.40); URINE GLUCOSE 250 MG/DL (NEGATIVE); URINE PROTEIN 100 (NEGATIVE)
[2024-07-20 14:04] VITALS: BP 143/52; O2SAT 98
[2024-07-20 15:58] VITALS: BP 106/56; O2SAT 98
[2024-07-20] MEDS ORDERED: SODIUM POLYSTYRENE SULFONATE 15 G/4 TSP TSP PO SCH (18:57)
[2024-07-20] MEDS ORDERED: VANCOMYCIN HCL 1,000 MG VIAL IV SCH (19:04)
[2024-07-20] MEDS ORDERED: MEROPENEM 500 MG/VIAL VIAL IV SCH (21:00)
[2024-07-20] MEDS ORDERED: SIMETHICONE 125 MG CAPSULE PO ONE (21:30)
[2024-07-21] VITALS: BP 102/73; O2SAT 83
[2024-07-21] MEDS ORDERED: LEVOTHYROXINE SODIUM 100 MCG TABLET PO SCH (06:00)
[2024-07-21] MEDS ORDERED: hydrALAZINE HCL 20 MG VIAL IV PRN (06:30)
[2024-07-21 08:12] LABS: CALCIUM 8.4 mg/dL (8.5-10.1); GFR 54.2; POTASSIUM 5.37 mEq/L (3.5-5.1)
[2024-07-21 08:47] VITALS: BP 125/62; O2SAT 95
[2024-07-21] MEDS ORDERED: ENOXAPARIN SODIUM 40 MG/0.4 ML SYRINGE SUBCUTANEO SCH (09:00)
[2024-07-21] MEDS ORDERED: IRON FUM,PS/FOLIC/BCOMP,C NO.9 1 CAP CAPSULE PO SCH (09:00)
[2024-07-21] MEDS ORDERED: CEFTRIAXONE SODIUM 2,000 MG in 0.9 % SODIUM CHLORIDE 100 ML IV SCH (09:00)
[2024-07-21] MEDS ORDERED: INSULIN GLARGINE,HUM.REC.ANLOG 1,000 UNITS/10 ML UNITS SUBCUTANEO NR (10:30)
[2024-07-21] MEDS ORDERED: SODIUM HYPOCHLORITE 1OZ TOP SCH (12:00)
[2024-07-21] MEDS ORDERED: KETOROLAC TROMETHAMINE 30 MG VIAL IV PRN (16:45)
[2024-07-21] MEDS ORDERED: LEVALBUTEROL HCL 0.63 MG/3 ML SOLUTION IH SCH (17:00)
[2024-07-21] MEDS ORDERED: TRAMADOL HCL 50 MG TABLET PO SCH (18:00)
[2024-07-22] VITALS: BP 157/69; O2SAT 98
[2024-07-22] MEDS ORDERED: INSULIN GLARGINE,HUM.REC.ANLOG 1,000 UNITS/10 ML UNITS SUBCUTANEO SCH (09:00)
[2024-07-22 09:33] VITALS: BP 170/79; O2SAT 97
[2024-07-22 16:00] VITALS: BP 167/70; O2SAT 99
[2024-07-22] MEDS ORDERED: NIFEDIPINE 30 MG TAB.SA.OSM PO SCH (17:00)
[2024-07-23] VITALS: BP 160/74; O2SAT 99
[2024-07-23 08:00] VITALS: BP 117/63; O2SAT 95
[2024-07-23 16:02] VITALS: BP 149/73; O2SAT 95
[2024-07-24] VITALS: BP 135/62; O2SAT 95
[2024-07-24 07:09] LABS: HEMATOCRIT 24.1 % (36.0-45.00); MEAN CELL VOLUME 87.9 fL (80.00-100.00); MEAN CORPUSCULAR HGB CONC 35.4 g/dl (32.0-36.0); PLATELET COUNT 221 K/uL (150-450); RED BLOOD COUNT 2.74 M/uL (4.00-6.00); RED CELL DISTRIBUTION WIDTH 12.9 % (11.5-14.5)
[2024-07-24 07:17] LABS: HEMOGLOBIN 8.5 g/dL (12.0-15.00)
[2024-07-24 07:45] VITALS: BP 122/73; O2SAT 98
[2024-07-24 07:53] LABS: ALBUMIN 2.5 gm/dL (3.4-5.0); BILIRUBIN TOTAL 0.33 mg/dL (0.3-1.2); CREATININE SERUM 0.63 mg/dL (0.55-1.02); GFR 92.37; MAGNESIUM 1.6 mg/dL (1.8-2.4); PHOSPHOROUS 3.1 mg/dL (2.5-4.9); POTASSIUM 3.92 mEq/L (3.5-5.1); TOTAL PROTEIN 6.5 gm/dL (6.4-8.2)
[2024-07-24] MEDS ORDERED: FUROsemide 20 MG/2 ML VIAL IV SCH (10:00)
[2024-07-24] MEDS ORDERED: MAGNESIUM SULFATE/D5W 100 ML IV NR (10:00)
[2024-07-24] MEDS ORDERED: FAMOTIDINE/PF 20 MG/2 ML VIAL IV NR (10:00)
[2024-07-24 16:20] VITALS: BP 146/75; O2SAT 94
[2024-07-24] MEDS ORDERED: AMPICILLIN SODIUM/SULBACTAM NA 3,000 MG VIAL IV SCH (18:00)
[2024-07-24] MEDS ORDERED: DEXTROSE 10 % IN WATER 500 ML IV SCH (23:45)
[2024-07-25 00:22] VITALS: BP 109/62; O2SAT 95
[2024-07-25] MEDS ORDERED: INSULIN GLARGINE,HUM.REC.ANLOG 1,000 UNITS/10 ML UNITS SUBCUTANEO SCH (09:00)
[2024-07-25] MEDS ORDERED: MEGESTROL ACETATE 400 MG/10 ML BLIST PACK PO SCH (09:00)
[2024-07-25 10:17] VITALS: BP 141/75; O2SAT 98
[2024-07-25] MEDS ORDERED: KETOROLAC TROMETHAMINE 60 MG VIAL IM STA (11:11)
[2024-07-25] MEDS ORDERED: FUROsemide 40 MG/4 ML VIAL IV STA (12:33)
[2024-07-25 12:47] LABS: MEAN CORPUSCULAR HEMOGLOBIN 30.6 pg (27.00-32.0); MEAN CORPUSCULAR HGB CONC 34.4 g/dl (32.0-36.0); PLATELET COUNT 266 K/uL (150-450); RED BLOOD COUNT 3.26 M/uL (4.00-6.00); RED CELL DISTRIBUTION WIDTH 12.9 % (11.5-14.5)
[2024-07-25 13:36] LABS: ALBUMIN 2.6 gm/dL (3.4-5.0); BILIRUBIN TOTAL 0.47 mg/dL (0.3-1.2); CALCIUM 8.4 mg/dL (8.5-10.1); CKMB 1.4 NG/ML (0.5-3.6); CREATININE SERUM 0.7 mg/dL (0.55-1.02); GFR 81.8; GLOBULINA 4.6 G/DL (2.4-3.5); MAGNESIUM 1.8 mg/dL (1.8-2.4); PHOSPHOROUS 3.1 mg/dL (2.5-4.9); POTASSIUM 3.76 mEq/L (3.5-5.1); TOTAL PROTEIN 7.2 gm/dL (6.4-8.2)
[2024-07-25 14:33] VITALS: O2SAT 100
[2024-07-25 16:00] VITALS: BP 146/78; O2SAT 97
[2024-07-25 17:00] VITALS: O2SAT 99
[2024-07-25] MEDS ORDERED: KETOROLAC TROMETHAMINE 30 MG VIAL IV PRN (18:00)
[2024-07-25] MEDS ORDERED: FUROsemide 20 MG/2 ML VIAL IV SCH (21:00)
[2024-07-25 21:39] VITALS: O2SAT 99
[2024-07-26] VITALS (9 sets, daily range): BP systolic 107–165; BP diastolic 64–76; O2SAT 95–100
[2024-07-26] MEDS ORDERED: FAMOtidine 40 MG TABLET PO SCH (09:00)
[2024-07-26 14:48] LABS: HEMATOCRIT 31.5 % (36.0-45.00); HEMOGLOBIN 10.7 g/dL (12.0-15.00); MEAN CELL VOLUME 89.6 fL (80.00-100.00); MEAN CORPUSCULAR HEMOGLOBIN 30.4 pg (27.00-32.0); PLATELET COUNT 239 K/uL (150-450); RED BLOOD COUNT 3.52 M/uL (4.00-6.00); RED CELL DISTRIBUTION WIDTH 13.5 % (11.5-14.5)
[2024-07-27] VITALS (8 sets, daily range): BP systolic 146–151; BP diastolic 69–78; O2SAT 95–100
[2024-07-27 07:13] LABS: HEMATOCRIT 28.3 % (36.0-45.00); HEMOGLOBIN 9.8 g/dL (12.0-15.00); MEAN CELL VOLUME 88.5 fL (80.00-100.00); MEAN CORPUSCULAR HEMOGLOBIN 30.7 pg (27.00-32.0); MEAN CORPUSCULAR HGB CONC 34.7 g/dl (32.0-36.0); PLATELET COUNT 223 K/uL (150-450); RED CELL DISTRIBUTION WIDTH 13.7 % (11.5-14.5)
[2024-07-27 07:34] LABS: ALBUMIN 2.2 gm/dL (3.4-5.0); BILIRUBIN TOTAL 0.43 mg/dL (0.3-1.2); CREATININE SERUM 0.77 mg/dL (0.55-1.02); GFR 73.28; GLOBULINA 3.7 G/DL (2.4-3.5); PHOSPHOROUS 3.3 mg/dL (2.5-4.9); POTASSIUM 3.65 mEq/L (3.5-5.1); TOTAL PROTEIN 5.9 gm/dL (6.4-8.2)
[2024-07-27 07:35] LABS: MAGNESIUM 1.4 mg/dL (1.8-2.4)
[2024-07-27] MEDS ORDERED: INSULIN GLARGINE,HUM.REC.ANLOG 1,000 UNITS/10 ML UNITS SUBCUTANEO SCH (09:00)
[2024-07-27] MEDS ORDERED: SODIUM CHLORIDE 0.45 % 1,000 ML IV SCH (09:00)
[2024-07-27] MEDS ORDERED: SILVER SULFADIAZINE 50 GM,ZINC OXIDE 30 GM,NYSTATIN 15 GM TOP SCH (17:00)
[2024-07-28 01:01] VITALS: BP 147/68; O2SAT 98
[2024-07-28 08:00] VITALS: BP 133/56; O2SAT 95
[2024-07-28] MEDS ORDERED: INSULIN LISPRO 1,000 UNIT/10 ML UNITS SUBCUTANEO STA (08:40)
[2024-07-28 09:51] VITALS: O2SAT 90
[2024-07-28 13:54] VITALS: O2SAT 99
[2024-07-28 17:03] VITALS: O2SAT 94
[2024-07-28 20:36] VITALS: O2SAT 100
[2024-07-29] VITALS (7 sets, daily range): BP systolic 130–142; BP diastolic 65–76; O2SAT 90–100
[2024-07-29] MEDS ORDERED: INSULIN LISPRO 1,000 UNIT/10 ML UNITS SUBCUTANEO SCH (08:00)
[2024-07-29 18:48] LABS: HEMATOCRIT 31.2 % (36.0-45.00); HEMOGLOBIN 10.7 g/dL (12.0-15.00); MEAN CELL VOLUME 89.2 fL (80.00-100.00); MEAN CORPUSCULAR HEMOGLOBIN 30.5 pg (27.00-32.0); MEAN CORPUSCULAR HGB CONC 34.1 g/dl (32.0-36.0); PLATELET COUNT 243 K/uL (150-450); RED CELL DISTRIBUTION WIDTH 13.8 % (11.5-14.5)
[2024-07-29 19:11] LABS: ALBUMIN 2.6 gm/dL (3.4-5.0); BILIRUBIN TOTAL 0.3 mg/dL (0.3-1.2); CALCIUM 8.3 mg/dL (8.5-10.1); CREATININE SERUM 0.9 mg/dL (0.55-1.02); GFR 61.21; GLOBULINA 4.1 G/DL (2.4-3.5); POTASSIUM 4.28 mEq/L (3.5-5.1); TOTAL PROTEIN 6.7 gm/dL (6.4-8.2)
[2024-07-30] VITALS (7 sets, daily range): BP systolic 135–148; BP diastolic 69–77; O2SAT 95–100
[2024-07-31] VITALS (7 sets, daily range): BP systolic 131–169; BP diastolic 65–75; O2SAT 98–99
[2024-07-31] MEDS ORDERED: FUROsemide 20 MG TABLET PO SCH (09:00)
[2024-07-31] MEDS ORDERED: INSULIN GLARGINE,HUM.REC.ANLOG 1,000 UNITS/10 ML UNITS SUBCUTANEO SCH (09:00)
[2024-07-31] MEDS ORDERED: FUROSEMIDE20 MG PO (16:43)
[2024-07-31] MEDS ORDERED: NIFEDIPINE ER30 M1 PO (16:43)
== END 2024-07-31 18:59 | disposition home or self-care (01) | DRG 300 ==
LOC: ER 09:43 → SEC-K 16:34 → SURH 16:34
PROVIDERS: Emergency Medicine; General Practice; Internal Medicine; Internal Medicine Infectious Disease; ADMIT Internal Medicine; ATTEND Internal Medicine
PROC: 3E0F7GC Introduction of Other Therapeutic Substance into Respiratory Tract, Via Natural or Artificial Opening (ICD-10-PCS; 2024-07-22)
PROC: 02HV33Z Insertion of Infusion Device into Superior Vena Cava, Percutaneous Approach (ICD-10-PCS; 2024-07-24)
PROC: 30233N1 Transfusion of Nonautologous Red Blood Cells into Peripheral Vein, Percutaneous Approach (ICD-10-PCS; 2024-07-24)
PROC: B246ZZZ Ultrasonography of Right and Left Heart (ICD-10-PCS; principal; 2024-07-25)
PROC: 0JBR3ZZ Excision of Left Foot Subcutaneous Tissue and Fascia, Percutaneous Approach (ICD-10-PCS; 2024-07-26)
PROC: B54MZZZ Ultrasonography of Right Upper Extremity Veins (ICD-10-PCS; 2024-07-28)
DX: E11.52 Type 2 diabetes mellitus with diabetic peripheral angiopathy with gangrene (principal); I96 Gangrene, not elsewhere classified; L97.528 Non-pressure chronic ulcer of other part of left foot with other specified severity; E11.40 Type 2 diabetes mellitus with diabetic neuropathy, unspecified; I87.2 Venous insufficiency (chronic) (peripheral); E11.65 Type 2 diabetes mellitus with hyperglycemia; Z79.4 Long term (current) use of insulin; I11.9 Hypertensive heart disease without heart failure; I48.91 Unspecified atrial fibrillation; E66.01 Morbid (severe) obesity due to excess calories; D64.9 Anemia, unspecified; L08.89 Other specified local infections of the skin and subcutaneous tissue; E11.628 Type 2 diabetes mellitus with other skin complications; R09.02 Hypoxemia; E11.621 Type 2 diabetes mellitus with foot ulcer

== ENCOUNTER 2024-08-29 12:23 | Emergency (ER) | payer OTHER ==
[~2024-08-29] VITALS: Ht 154.9 cm; Wt 81.6 kg
[~2024-08-29 12:23] MED LIST changes: +FUROSEMIDE20 MG PO; +NIFEDIPINE ER30 M1 PO
== END 2024-08-29 14:01 | disposition home or self-care (01) ==
LOC: ER 12:25
DX: E11.621 Type 2 diabetes mellitus with foot ulcer (principal); L97.528 Non-pressure chronic ulcer of other part of left foot with other specified severity; Z79.4 Long term (current) use of insulin; I10 Essential (primary) hypertension; Z91.018 Allergy to other foods; Z88.6 Allergy status to analgesic agent

== ENCOUNTER 2024-09-05 18:52 | Inpatient (IN) | payer OTHER ==
[~2024-09-05] VITALS: Ht 154.9 cm; Wt 81.6 kg
--- NOTE | 2024-09-05 19:51 | NUR ---
PTE ALERTA Y ORIENTADA 3 EN COMPANIA DE FAMILIAR REFIERE VENIR A LUZ ELENA POR TIENE LA PIERNA IZQUIERDA INFLAMADA Y UN DEDO DEL PIE OSCURO. PTE EXPRESA QUE FUE REFERIDA POR EL DR NAZIA YOU. SE MIDEN S/V Y SE UBICA.
[2024-09-05] MEDS ORDERED: PIPERACILLIN/TAZOBACTAM SODIUM 3.375 GM VIAL IV ONE (20:30)
[2024-09-05] MEDS ORDERED: 0.9 % SODIUM CHLORIDE 1,000 ML IV SCH ×2 (20:30→21:45)
--- NOTE | 2024-09-05 21:02 | NUR ---
PACIENTE EVALUADA POR DR. ZUNIGA QUIEN [place], MEDICO RN PATEL EDUCA ACERCA DEL MISMO Y REFIERE ENTENDER. SE CANALIZA Y COLECTAN MUESTRAS DE LABORATORIO MEDIANTE MEDIDAS ASEPTICAS. SE ADMINISTRAN MEDICAMENTOS PAL[place] ORDEN MEDICA.
[2024-09-05 21:10] LABS: HEMATOCRIT 31.5 % (36.0-45.00); HEMOGLOBIN 10.6 g/dL (12.0-15.00); MEAN CELL VOLUME 88.8 fL (80.00-100.00); MEAN CORPUSCULAR HGB CONC 33.7 g/dl (32.0-36.0); PLATELET COUNT 257 K/uL (150-450); RED BLOOD COUNT 3.54 M/uL (4.00-6.00); RED CELL DISTRIBUTION WIDTH 13.5 % (11.5-14.5)
[2024-09-05 21:32] LABS: INR 1.03; PARTIAL THROMBOPLASTIN TIME 30.5 SECONDS (22.0-34.0); PROTHROMBIN TIME 11.2 SECONDS (9.0-11.5)
[2024-09-05] MEDS ORDERED: VANCOMYCIN HCL 1,000 MG VIAL IV SCH (21:38)
[2024-09-05 21:41] LABS: ALBUMIN 3.3 gm/dL (3.4-5.0); BILIRUBIN TOTAL 0.26 mg/dL (0.3-1.2); C-REACTIVE PROTEIN 6.96 MG/DL (0.00-0.29); CREATININE SERUM 1.16 mg/dL (0.55-1.02); GFR 45.67; POTASSIUM 3.97 mEq/L (3.5-5.1); TOTAL PROTEIN 8.3 gm/dL (6.4-8.2)
[2024-09-05 23:22] LABS: URINE APPEARANCE Cloudy; URINE BILIRRUBIN Negative (NEGATIVE); URINE BLOOD Small; URINE COLOR Yellow; URINE KETONE Negative (NEGATIVE); URINE LEUKOCYTE Small; URINE NITRATE Negative; URINE UROBILINOGEN 0.2 E.U./dl
[2024-09-05 23:27] LABS: URINE BACTERIA 471.2 uL (0.0-1933); URINE RBC 18.7 uL (0.0-20.8); URINE WBC 159.6 uL (0.0-23.2)
[2024-09-05 23:35] LABS: URINE CAST 0.91 uL (0.0-1.40); URINE GLUCOSE 500 MG/DL (NEGATIVE); URINE PROTEIN 300 (NEGATIVE)
[2024-09-06 00:02] VITALS: BP 147/63; O2SAT 98
[2024-09-06] MEDS ORDERED: LEVOTHYROXINE SODIUM 100 MCG TABLET PO SCH (06:00)
[2024-09-06] MEDS ORDERED: GABAPENTIN 300 MG CAPSULE PO SCH (09:00)
[2024-09-06] MEDS ORDERED: SODIUM HYPOCHLORITE 1OZ TOP SCH (09:00)
[2024-09-06] MEDS ORDERED: ATORVASTATIN CALCIUM 40 MG TABLET PO SCH (09:00)
[2024-09-06] MEDS ORDERED: CEFTRIAXONE SODIUM 2,000 MG in 0.9 % SODIUM CHLORIDE 100 ML IV SCH (09:00)
[2024-09-06] MEDS ORDERED: FAMOTIDINE/PF 20 MG in 0.9 % SODIUM CHLORIDE 8 ML IV PUSH SCH (09:00)
[2024-09-06] MEDS ORDERED: ENOXAPARIN SODIUM 80 MG/0.8 ML SYRINGE SUBCUTANEO SCH (09:00)
[2024-09-06 09:11] VITALS: BP 155/73; O2SAT 97
[2024-09-06] MEDS ORDERED: MEROPENEM 500 MG/VIAL VIAL IV SCH (17:00)
[2024-09-06] MEDS ORDERED: NIFEDIPINE 30 MG TAB.SA.OSM PO SCH (17:00)
[2024-09-06 18:21] VITALS: BP 180/79
[2024-09-07 01:55] VITALS: BP 152/68; O2SAT 99
[2024-09-07 06:45] LABS: HEMATOCRIT 28.3 % (36.0-45.00); HEMOGLOBIN 9.7 g/dL (12.0-15.00); MEAN CELL VOLUME 88.3 fL (80.00-100.00); MEAN CORPUSCULAR HEMOGLOBIN 30.3 pg (27.00-32.0); MEAN CORPUSCULAR HGB CONC 34.4 g/dl (32.0-36.0); PLATELET COUNT 221 K/uL (150-450); RED CELL DISTRIBUTION WIDTH 13.6 % (11.5-14.5)
[2024-09-07 07:07] LABS: ALBUMIN 2.7 gm/dL (3.4-5.0); BILIRUBIN TOTAL 0.31 mg/dL (0.3-1.2); CALCIUM 8.2 mg/dL (8.5-10.1); CREATININE SERUM 0.85 mg/dL (0.55-1.02); GFR 65.38; MAGNESIUM 1.9 mg/dL (1.8-2.4); PHOSPHOROUS 2.8 mg/dL (2.5-4.9); POTASSIUM 4.18 mEq/L (3.5-5.1); TOTAL PROTEIN 6.7 gm/dL (6.4-8.2)
[2024-09-07 09:04] VITALS: BP 150/72; O2SAT 97
[2024-09-07] MEDS ORDERED: ACETAMINOPHEN 500 MG GEL..CAP PO PRN (17:00)
[2024-09-07] MEDS ORDERED: LEVALBUTEROL HCL 0.63 MG/3 ML SOLUTION IH SCH ×2 (17:00)
[2024-09-07 18:01] VITALS: BP 174/64
[2024-09-07] MEDS ORDERED: KETOROLAC TROMETHAMINE 30 MG VIAL IV PRN (21:00)
[2024-09-07] MEDS ORDERED: INSULIN GLARGINE,HUM.REC.ANLOG 1,000 UNITS/10 ML UNITS SUBCUTANEO SCH (21:00)
[2024-09-08 00:51] VITALS: BP 140/60; O2SAT 98
[2024-09-08 08:51] VITALS: BP 141/66; O2SAT 96
[2024-09-08 16:39] VITALS: BP 173/63; O2SAT 95
[2024-09-09 02:43] VITALS: BP 143/58; O2SAT 93
[2024-09-09 08:41] LABS: HEMATOCRIT 24.5 % (36.0-45.00); MEAN CELL VOLUME 88.3 fL (80.00-100.00); MEAN CORPUSCULAR HEMOGLOBIN 31.2 pg (27.00-32.0); MEAN CORPUSCULAR HGB CONC 35.4 g/dl (32.0-36.0); PLATELET COUNT 167 K/uL (150-450); RED BLOOD COUNT 2.78 M/uL (4.00-6.00); RED CELL DISTRIBUTION WIDTH 13.6 % (11.5-14.5)
[2024-09-09 08:43] LABS: HEMOGLOBIN 8.7 g/dL (12.0-15.00)
[2024-09-09 08:53] LABS: ALBUMIN 2.3 gm/dL (3.4-5.0); BILIRUBIN TOTAL 0.15 mg/dL (0.3-1.2); CALCIUM 7.8 mg/dL (8.5-10.1); CREATININE SERUM 1.03 mg/dL (0.55-1.02); GFR 52.38; GLOBULINA 3.5 G/DL (2.4-3.5); MAGNESIUM 1.9 mg/dL (1.8-2.4); PHOSPHOROUS 3.1 mg/dL (2.5-4.9); POTASSIUM 4.43 mEq/L (3.5-5.1); TOTAL PROTEIN 5.8 gm/dL (6.4-8.2)
[2024-09-09 08:55] LABS: C-REACTIVE PROTEIN 11.9 MG/DL (0.00-0.29)
[2024-09-09] MEDS ORDERED: OSELTAMIVIR PHOSPHATE 75 MG CAPSULE PO SCH (09:00)
[2024-09-09] MEDS ORDERED: INSULIN GLARGINE,HUM.REC.ANLOG 1,000 UNITS/10 ML UNITS SUBCUTANEO SCH (09:00)
[2024-09-09 09:24] VITALS: BP 140/60; O2SAT 94
[2024-09-09 12:22] LABS: ABG PH 7.419 (7.35-7.45); ABG PO2 60.3 mmHg (80-100); BASE EXCESS -3.7 mmol/l; BICARBONATE 19.6 mmol/l (23-25); Tco2 20.5 mmol/l; allen test SATISFACTORY; o2 28 %; puncture site RADIAL LEFT
[2024-09-09 17:37] VITALS: BP 165/74; O2SAT 93
[2024-09-09] MEDS ORDERED: DEXTROSE 50 % IN WATER 0.5 G/ML DISP.SYRIN IV PRN (18:15)
[2024-09-09] MEDS ORDERED: INSULIN LISPRO 1,000 UNIT/10 ML UNITS SUBCUTANEO PRN (18:15)
[2024-09-10] MEDS ORDERED: MEPERIDINE HCL/PF 50 MG/ML VIAL IM STA (01:31)
[2024-09-10] MEDS ORDERED: PROMETHAZINE HCL 50 MG/ML AMPUL IM STA (01:32)
[2024-09-10 02:37] VITALS: BP 126/75; O2SAT 96
[2024-09-10 09:02] LABS: MEAN CELL VOLUME 87.2 fL (80.00-100.00); MEAN CORPUSCULAR HGB CONC 35.6 g/dl (32.0-36.0); PLATELET COUNT 149 K/uL (150-450); RED BLOOD COUNT 2.57 M/uL (4.00-6.00); RED CELL DISTRIBUTION WIDTH 13.5 % (11.5-14.5)
[2024-09-10 09:14] LABS: HEMATOCRIT 22.4 % (36.0-45.00); MEAN CORPUSCULAR HEMOGLOBIN 31.1 pg (27.00-32.0)
[2024-09-10 09:52] VITALS: BP 138/60; O2SAT 98
[2024-09-10 10:07] LABS: CALCIUM 7.6 mg/dL (8.5-10.1); CREATININE SERUM 0.89 mg/dL (0.55-1.02); POTASSIUM 4.37 mEq/L (3.5-5.1); T4 TOTAL 6.56 UG/DL (4.8-13.9); TSH 3.74 uIU/mL (0.358-3.74)
[2024-09-10] MEDS ORDERED: IPRATROPIUM BROMIDE 0.5 MG/2.5 ML AMPUL.NEB IH SCH (14:00)
[2024-09-10] MEDS ORDERED: GUAIFENESIN/DEXTROMETHORPHAN 10ML BLIST.PACK PO SCH (14:00)
[2024-09-10 16:51] VITALS: BP 158/78; O2SAT 95
[2024-09-10] MEDS ORDERED: LEVALBUTEROL HCL 0.63 MG/3 ML SOLUTION IH SCH (18:00)
[2024-09-11 02:00] VITALS: BP 152/79; O2SAT 99
[2024-09-11 09:03] VITALS: BP 146/84
[2024-09-12 01:20] VITALS: BP 166/80; O2SAT 100
[2024-09-12] MEDS ORDERED: FAMOTIDINE/PF 20 MG in 0.9 % SODIUM CHLORIDE 8 ML IV PUSH SCH (09:00)
[2024-09-12 09:11] VITALS: BP 144/104; O2SAT 100
[2024-09-12 10:11] LABS: HEMATOCRIT 26.4 % (36.0-45.00); HEMOGLOBIN 9.6 g/dL (12.0-15.00); MEAN CELL VOLUME 86.5 fL (80.00-100.00); MEAN CORPUSCULAR HEMOGLOBIN 31.3 pg (27.00-32.0); MEAN CORPUSCULAR HGB CONC 36.2 g/dl (32.0-36.0); PLATELET COUNT 146 K/uL (150-450); RED BLOOD COUNT 3.06 M/uL (4.00-6.00); RED CELL DISTRIBUTION WIDTH 13.9 % (11.5-14.5)
[2024-09-12] MEDS ORDERED: MEPERIDINE HCL 25 MG/ML AMPUL IV PRN (13:30)
[2024-09-12] MEDS ORDERED: PANTOPRAZOLE SODIUM 80 MG IV SCH (13:30)
[2024-09-12] MEDS ORDERED: PANTOPRAZOLE SODIUM 80 MG in 0.9 % SODIUM CHLORIDE 100 ML IV SCH (14:30)
[2024-09-12] MEDS ORDERED: FUROsemide 20 MG/2 ML VIAL IV SCH (17:15)
[2024-09-12 17:22] VITALS: BP 186/78; O2SAT 100
[2024-09-12] MEDS ORDERED: hydrALAZINE HCL 20 MG VIAL IV PRN (17:45)
[2024-09-12 22:45] VITALS: BP 192/83; O2SAT 100
[2024-09-13 01:37] VITALS: BP 148/72; O2SAT 100
[2024-09-13] MEDS ORDERED: INSULIN GLARGINE,HUM.REC.ANLOG 1,000 UNITS/10 ML UNITS SUBCUTANEO SCH (09:00)
[2024-09-13 09:33] VITALS: BP 158/83; O2SAT 100
[2024-09-13] MEDS ORDERED: METOPROLOL SUCCINATE 100 MG TAB.SR.24H PO NR (15:10)
[2024-09-13 16:43] LABS: ob NEGATIVE (NEGATIVE)
[2024-09-13 17:58] VITALS: BP 140/70
[2024-09-13] MEDS ORDERED: NIFEDIPINE 60 MG TAB.SA.OSM PO SCH (21:00)
[2024-09-13 21:13] LABS: HEMATOCRIT 29.3 % (36.0-45.00); HEMOGLOBIN 10.2 g/dL (12.0-15.00); MEAN CELL VOLUME 87.6 fL (80.00-100.00); MEAN CORPUSCULAR HEMOGLOBIN 30.4 pg (27.00-32.0); MEAN CORPUSCULAR HGB CONC 34.7 g/dl (32.0-36.0); PLATELET COUNT 177 K/uL (150-450); RED BLOOD COUNT 3.34 M/uL (4.00-6.00)
[2024-09-14 02:11] VITALS: BP 132/77; O2SAT 100
[2024-09-14 07:06] LABS: ALBUMIN 2.4 gm/dL (3.4-5.0); BILIRUBIN TOTAL 0.64 mg/dL (0.3-1.2); CREATININE SERUM 0.77 mg/dL (0.55-1.02); GFR 73.28; GLOBULINA 3.7 G/DL (2.4-3.5); MAGNESIUM 1.8 mg/dL (1.8-2.4); PHOSPHOROUS 2.7 mg/dL (2.5-4.9); POTASSIUM 4.52 mEq/L (3.5-5.1); TOTAL PROTEIN 6.1 gm/dL (6.4-8.2)
[2024-09-14 08:59] VITALS: BP 157/88; O2SAT 99
[2024-09-14] MEDS ORDERED: METOPROLOL SUCCINATE 100 MG TAB.SR.24H PO SCH (09:00)
[2024-09-14] MEDS ORDERED: PANTOPRAZOLE SODIUM 40 MG in 0.9 % SODIUM CHLORIDE 8 ML IV PUSH SCH (09:00)
[2024-09-14] MEDS ORDERED: VANCOMYCIN HCL 1,000 MG in 0.9 % SODIUM CHLORIDE 250 ML IV NR (12:30)
[2024-09-14 22:26] VITALS: BP 189/67
[2024-09-15 02:55] VITALS: BP 132/55
[2024-09-15] MEDS ORDERED: INSULIN GLARGINE,HUM.REC.ANLOG 1,000 UNITS/10 ML UNITS SUBCUTANEO SCH (09:00)
[2024-09-15] MEDS ORDERED: ZINC OXIDE 30 GM,NYSTATIN 30 GM TOP SCH (09:00)
[2024-09-15 10:03] VITALS: BP 133/74; O2SAT 100
[2024-09-15 17:03] VITALS: BP 154/64; O2SAT 97
[2024-09-15] MEDS ORDERED: ZOLPIDEM TARTRATE 10 MG TABLET PO SCH (21:00)
[2024-09-16] MEDS ORDERED: MEPERIDINE HCL 25 MG/ML AMPUL IV PRN (01:00)
[2024-09-16 01:13] VITALS: BP 150/65; O2SAT 98
[2024-09-16 08:35] LABS: ALBUMIN 2.3 gm/dL (3.4-5.0); BILIRUBIN TOTAL 0.6 mg/dL (0.3-1.2); CALCIUM 7.7 mg/dL (8.5-10.1); CREATININE SERUM 1.42 mg/dL (0.55-1.02); GFR 36.16; GLOBULINA 3.7 G/DL (2.4-3.5); MAGNESIUM 1.8 mg/dL (1.8-2.4); PHOSPHOROUS 3.1 mg/dL (2.5-4.9); POTASSIUM 4.45 mEq/L (3.5-5.1)
[2024-09-16 08:46] LABS: C-REACTIVE PROTEIN 4.76 MG/DL (0.00-0.29)
[2024-09-16 09:01] VITALS: BP 136/72
[2024-09-16 09:19] LABS: MEAN CELL VOLUME 88.6 fL (80.00-100.00); MEAN CORPUSCULAR HGB CONC 34.5 g/dl (32.0-36.0); PLATELET COUNT 206 K/uL (150-450); RED BLOOD COUNT 2.52 M/uL (4.00-6.00); RED CELL DISTRIBUTION WIDTH 14.3 % (11.5-14.5)
[2024-09-16 09:38] LABS: HEMATOCRIT 22.3 % (36.0-45.00); HEMOGLOBIN 7.7 g/dL (12.0-15.00); MEAN CORPUSCULAR HEMOGLOBIN 30.5 pg (27.00-32.0)
[2024-09-16] MEDS ORDERED: 0.9 % SODIUM CHLORIDE 1,000 ML IV SCH (11:15)
[2024-09-16] MEDS ORDERED: PANTOPRAZOLE SODIUM 40 MG/VIAL VIAL IV NR (12:00)
[2024-09-16 18:03] VITALS: BP 130/75
[2024-09-16] MEDS ORDERED: PANTOPRAZOLE SODIUM 40 MG/VIAL VIAL IV PUSH SCH (21:00)
[2024-09-17 01:05] VITALS: BP 133/79; O2SAT 95
[2024-09-17] MEDS ORDERED: INSULIN LISPRO 1,000 UNIT/10 ML UNITS SUBCUTANEO SCH (08:00)
[2024-09-17 08:21] VITALS: BP 129/75; O2SAT 98
[2024-09-17] MEDS ORDERED: INSULIN GLARGINE,HUM.REC.ANLOG 1,000 UNITS/10 ML UNITS SUBCUTANEO SCH (09:00)
[2024-09-17 16:00] VITALS: BP 156/69; O2SAT 95
[2024-09-17 23:21] LABS: HEMATOCRIT 30.1 % (36.0-45.00); HEMOGLOBIN 10.4 g/dL (12.0-15.00); MEAN CELL VOLUME 87.7 fL (80.00-100.00); MEAN CORPUSCULAR HEMOGLOBIN 30.3 pg (27.00-32.0); MEAN CORPUSCULAR HGB CONC 34.5 g/dl (32.0-36.0); PLATELET COUNT 224 K/uL (150-450); RED BLOOD COUNT 3.44 M/uL (4.00-6.00); RED CELL DISTRIBUTION WIDTH 14.5 % (11.5-14.5)
[2024-09-18 01:21] VITALS: BP 160/71; O2SAT 100
[2024-09-18] MEDS ORDERED: MEPERIDINE HCL 25 MG/ML AMPUL IV PRN (05:15)
[2024-09-18] MEDS ORDERED: VANCOMYCIN HCL 1,000 MG VIAL IV SCH (09:00)
[2024-09-18 10:00] VITALS: BP 168/75; O2SAT 97
[2024-09-18 16:55] VITALS: BP 160/77; O2SAT 100
[2024-09-18] MEDS ORDERED: MINERAL OIL 30 ML BLIST.PACK PO ONE (17:30)
[2024-09-18] MEDS ORDERED: LACTULOSE 20 G/30 ML BLIST.PACK PO ONE (17:30)
[2024-09-18] MEDS ORDERED: MAGNESIUM HYDROXIDE 30 ML BLIST.PACK PO ONE (17:30)
[2024-09-18 22:29] LABS: CALCIUM 8.3 mg/dL (8.5-10.1); CREATININE SERUM 0.68 mg/dL (0.55-1.02); GFR 84.58; POTASSIUM 4.24 mEq/L (3.5-5.1)
[2024-09-19 01:42] VITALS: BP 122/66; O2SAT 96
[2024-09-19 05:02] LABS: HEMATOCRIT 30.4 % (36.0-45.00); MEAN CELL VOLUME 88.9 fL (80.00-100.00); MEAN CORPUSCULAR HEMOGLOBIN 30.4 pg (27.00-32.0); MEAN CORPUSCULAR HGB CONC 34.2 g/dl (32.0-36.0); PLATELET COUNT 219 K/uL (150-450); RED BLOOD COUNT 3.42 M/uL (4.00-6.00); RED CELL DISTRIBUTION WIDTH 14.1 % (11.5-14.5)
[2024-09-19 05:32] LABS: HEMOGLOBIN 10.4 g/dL (12.0-15.00)
[2024-09-19 05:36] LABS: ALBUMIN 2.1 gm/dL (3.4-5.0); BILIRUBIN TOTAL 0.96 mg/dL (0.3-1.2); CALCIUM 7.8 mg/dL (8.5-10.1); CREATININE SERUM 0.76 mg/dL (0.55-1.02); GFR 74.39; MAGNESIUM 1.8 mg/dL (1.8-2.4); PHOSPHOROUS 2.1 mg/dL (2.5-4.9); POTASSIUM 4.63 mEq/L (3.5-5.1); TOTAL PROTEIN 6.1 gm/dL (6.4-8.2)
[2024-09-19 08:14] VITALS: BP 156/71; O2SAT 98
[2024-09-19] MEDS ORDERED: MEPERIDINE HCL/PF 25 MG/ML VIAL IM ONE (09:45)
[2024-09-19] MEDS ORDERED: POTASSIUM PHOS,M-BASIC-D-BASIC 18 MM in 0.9 % SODIUM CHLORIDE 500 ML IV NR (13:45)
[2024-09-19] MEDS ORDERED: SODIUM CHLORIDE 0.45 % 1,000 ML IV SCH (13:45)
[2024-09-19 16:58] VITALS: BP 160/81; O2SAT 100
[2024-09-19] MEDS ORDERED: MEPERIDINE HCL/PF 25 MG/ML VIAL IV PRN (17:12)
[2024-09-19] MEDS ORDERED: MEPERIDINE HCL 25 MG/ML AMPUL IV ONE (17:15)
[2024-09-19 19:51] VITALS: BP 183/75
[2024-09-19] MEDS ORDERED: KETOROLAC TROMETHAMINE 30 MG VIAL IV ONE (21:30)
[2024-09-19] MEDS ORDERED: GABAPENTIN 300 MG CAPSULE PO ONE (21:30)
[2024-09-20 01:08] VITALS: BP 163/70
[2024-09-20 10:18] VITALS: BP 142/76; O2SAT 99
== END 2024-09-20 13:28 | disposition home or self-care (01) | DRG 264 ==
LOC: ER 18:53 → MEDJ 22:43 → SEC-K 22:43 → MEDJ 23:00 → MEDI 09-11 17:06 → MEDJ 09-19 17:15
PROVIDERS: Emergency Medicine; Internal Medicine; Internal Medicine Endocrinology, Diabetes & Metabolism; Internal Medicine Infectious Disease; ADMIT Internal Medicine; ATTEND Internal Medicine
PROC: B44HZZZ Ultrasonography of Bilateral Lower Extremity Arteries (ICD-10-PCS; 2024-09-05)
PROC: 0JBR0ZZ Excision of Left Foot Subcutaneous Tissue and Fascia, Open Approach (ICD-10-PCS; principal; 2024-09-07)
PROC: 3E0F7GC Introduction of Other Therapeutic Substance into Respiratory Tract, Via Natural or Artificial Opening (ICD-10-PCS; 2024-09-07)
PROC: BB24ZZZ Computerized Tomography (CT Scan) of Bilateral Lungs (ICD-10-PCS; 2024-09-08)
PROC: 30233N1 Transfusion of Nonautologous Red Blood Cells into Peripheral Vein, Percutaneous Approach (ICD-10-PCS; 2024-09-11)
PROC: B54DZZZ Ultrasonography of Bilateral Lower Extremity Veins (ICD-10-PCS; 2024-09-12)
PROC: 0HBNXZZ Excision of Left Foot Skin, External Approach (ICD-10-PCS; 2024-09-13)
PROC: 02HV33Z Insertion of Infusion Device into Superior Vena Cava, Percutaneous Approach (ICD-10-PCS; 2024-09-19)
PROC: 0JBR0ZZ Excision of Left Foot Subcutaneous Tissue and Fascia, Open Approach (ICD-10-PCS; 2024-09-20)
DX: E11.52 Type 2 diabetes mellitus with diabetic peripheral angiopathy with gangrene (principal); J10.08 Influenza due to other identified influenza virus with other specified pneumonia; J18.0 Bronchopneumonia, unspecified organism; T81.41XA Infection following a procedure, superficial incisional surgical site, initial encounter; I96 Gangrene, not elsewhere classified; L97.528 Non-pressure chronic ulcer of other part of left foot with other specified severity; J44.1 Chronic obstructive pulmonary disease with (acute) exacerbation; D62 Acute posthemorrhagic anemia; E11.621 Type 2 diabetes mellitus with foot ulcer; L03.032 Cellulitis of left toe; E11.42 Type 2 diabetes mellitus with diabetic polyneuropathy; I70.292 Other atherosclerosis of native arteries of extremities, left leg; D64.89 Other specified anemias; E11.65 Type 2 diabetes mellitus with hyperglycemia; M79.604 Pain in right leg; E03.9 Hypothyroidism, unspecified; E78.5 Hyperlipidemia, unspecified; Z88.6 Allergy status to analgesic agent; Z79.4 Long term (current) use of insulin; Z89.422 Acquired absence of other left toe(s)

== ENCOUNTER 2024-10-12 13:40 | Inpatient (IN) | payer OTHER ==
[~2024-10-12] VITALS: Ht 154.9 cm; Wt 83.0 kg
--- NOTE | 2024-10-12 14:08 | NUR ---
PACIENTE TRANSFERIDO DEL [facility] POR GANGRENA EN ROBERT PIE MIRACLE. LA MISMA CON BERNAL DRENANDO A GRAVEDAD Y PICC LINE EN SAMIR LOPEZ.
[2024-10-12] MEDS ORDERED: VANCOMYCIN HCL 1,000 MG VIAL IV ONE (15:00)
[2024-10-12] MEDS ORDERED: 0.9 % SODIUM CHLORIDE 500 ML IV ONE (15:00)
[2024-10-12] MEDS ORDERED: FAMOTIDINE/PF 20 MG/2 ML VIAL IV ONE (15:00)
[2024-10-12 15:59] LABS: HEMATOCRIT 35.8 % (36.0-45.00); HEMOGLOBIN 12.3 g/dL (12.0-15.00); MEAN CELL VOLUME 89.6 fL (80.00-100.00); MEAN CORPUSCULAR HEMOGLOBIN 30.7 pg (27.00-32.0); MEAN CORPUSCULAR HGB CONC 34.3 g/dl (32.0-36.0); PLATELET COUNT 268 K/uL (150-450); RED CELL DISTRIBUTION WIDTH 15.3 % (11.5-14.5)
--- NOTE | 2024-10-12 16:10 | NUR ---
PTE FEMENINA EVALUADA POR MERCEDES MANDUJANO. SE ORIENTA SOBRE ORDENES DE [place] REFIERE COMPRENDER. SE COLECTAN MUESTRAS DE LABORATORIOS, BAJO MEDIDAS ASEPTICAS. SE OBSERVA PICCLINE ENBRAZO R+ PROVENIENTE DE ML. SE ADMINISTRAN MEDICAMENTOS, BAJO MEDIDAS ASEPTICAS. SE NOTIFICAN XRAY PENDIENTES.
[2024-10-12 16:12] LABS: INR 1.05; PARTIAL THROMBOPLASTIN TIME 25.7 SECONDS (22.0-34.0); PROTHROMBIN TIME 11.4 SECONDS (9.0-11.5)
[2024-10-12 16:17] LABS: URINE APPEARANCE Clear; URINE BILIRRUBIN Negative (NEGATIVE); URINE BLOOD Moderate; URINE COLOR Yellow; URINE KETONE 15 (NEGATIVE); URINE LEUKOCYTE Negative; URINE NITRATE Negative; URINE PROTEIN >=1000 (NEGATIVE); URINE UROBILINOGEN 0.2 E.U./dl
[2024-10-12 16:20] LABS: ALBUMIN 2.8 gm/dL (3.4-5.0); BILIRUBIN TOTAL 0.42 mg/dL (0.3-1.2); CALCIUM 8.8 mg/dL (8.5-10.1); CREATININE SERUM 1.01 mg/dL (0.55-1.02); GFR 53.58; GLOBULINA 5.2 G/DL (2.4-3.5); POTASSIUM 4.44 mEq/L (3.5-5.1)
[2024-10-12 16:21] LABS: URINE BACTERIA 211.7 uL (0.0-1933); URINE CAST 1.47 uL (0.0-1.40); URINE RBC 246.7 uL (0.0-20.8); URINE WBC 16.6 uL (0.0-23.2)
[2024-10-12 16:39] LABS: URINE GLUCOSE >=1000 MG/DL (NEGATIVE)
[2024-10-12] MEDS ORDERED: ACETAMINOPHEN 500 MG GEL..CAP PO PRN (19:30)
[2024-10-12] MEDS ORDERED: PIPERACILLIN/TAZOBACTAM SODIUM 3.375 GM in DEXTROSE 5 % IN WATER 100 ML IV SCH (19:30)
[2024-10-12] MEDS ORDERED: 0.9 % SODIUM CHLORIDE 1,000 ML IV SCH (19:30)
[2024-10-12] MEDS ORDERED: ATORVASTATIN CALCIUM 40 MG TABLET PO SCH (19:32)
[2024-10-12] MEDS ORDERED: APIXABAN 5 MG TABLET PO SCH (19:33)
[2024-10-12] MEDS ORDERED: DEXTROSE 50 % IN WATER 0.5 G/ML DISP.SYRIN IV PRN (19:45)
[2024-10-12] MEDS ORDERED: INSULIN LISPRO 1,000 UNIT/10 ML UNITS SUBCUTANEO PRN (19:45)
[2024-10-12] MEDS ORDERED: LORazepam 1 MG TABLET PO ONE (21:30)
[2024-10-12] MEDS ORDERED: LORazepam 2 MG/ML VIAL IV ONE (22:00)
[2024-10-13] MEDS ORDERED: DIPHENHYDRAMINE HCL 50 MG/ML VIAL 1ML IM STA (02:18)
[2024-10-13] MEDS ORDERED: HALOPERIDOL LACTATE 5 MG/ML AMPUL IM STA (02:38)
[2024-10-13 03:45] VITALS: BP 168/64; O2SAT 97
[2024-10-13] MEDS ORDERED: LEVOTHYROXINE SODIUM 100 MCG TABLET PO SCH (06:00)
[2024-10-13 08:00] VITALS: BP 155/87; O2SAT 100
[2024-10-13] MEDS ORDERED: PANTOPRAZOLE SODIUM 40 MG/VIAL VIAL IV SCH (09:00)
[2024-10-13] MEDS ORDERED: GABAPENTIN 300 MG CAPSULE PO SCH (09:00)
[2024-10-13] MEDS ORDERED: VANCOMYCIN HCL 1,000 MG VIAL IV SCH (09:00)
[2024-10-13 16:00] VITALS: BP 128/76; O2SAT 98
[2024-10-13] MEDS ORDERED: LEVALBUTEROL HCL 0.63 MG/3 ML SOLUTION IH SCH (20:17)
[2024-10-13] MEDS ORDERED: IPRATROPIUM BROMIDE 0.5 MG/2.5 ML AMPUL.NEB IH SCH (20:17)
[2024-10-13] MEDS ORDERED: MEROPENEM 500 MG/VIAL VIAL IV SCH (21:00)
[2024-10-14 02:08] VITALS: BP 90/64; O2SAT 94
[2024-10-14 08:00] VITALS: BP 150/70; O2SAT 99
[2024-10-14] MEDS ORDERED: INSULIN LISPRO 1,000 UNIT/10 ML UNITS SUBCUTANEO SCH (08:00)
[2024-10-14] MEDS ORDERED: INSULIN GLARGINE,HUM.REC.ANLOG 1,000 UNITS/10 ML UNITS SUBCUTANEO SCH (09:00)
[2024-10-14 16:14] VITALS: BP 150/62; O2SAT 100
[2024-10-15 01:37] VITALS: BP 108/73; O2SAT 97
[2024-10-15 08:00] VITALS: BP 130/78; O2SAT 95
[2024-10-15 16:36] VITALS: BP 180/82; O2SAT 96
[2024-10-15] MEDS ORDERED: ENALAPRILAT DIHYDRATE 1.25 MG/ML VIAL IV STA (19:32)
[2024-10-15] MEDS ORDERED: ENALAPRILAT DIHYDRATE 1.25 MG/ML VIAL IV PRN (19:45)
[2024-10-16 02:25] VITALS: BP 149/78; O2SAT 100
[2024-10-16] MEDS ORDERED: DILTIAZEM HCL 125MG/25ML VIAL IV ONE (02:30)
[2024-10-16 08:00] VITALS: BP 144/81; O2SAT 98
[2024-10-16] MEDS ORDERED: INSULIN LISPRO 1,000 UNIT/10 ML UNITS SUBCUTANEO SCH (08:00)
[2024-10-16] MEDS ORDERED: INSULIN GLARGINE,HUM.REC.ANLOG 1,000 UNITS/10 ML UNITS SUBCUTANEO SCH (09:00)
[2024-10-16 11:16] LABS: ALBUMIN 2.3 gm/dL (3.4-5.0); BILIRUBIN TOTAL 0.4 mg/dL (0.3-1.2); CALCIUM 7.9 mg/dL (8.5-10.1); CREATININE SERUM 1.34 mg/dL (0.55-1.02); GFR 38.66; GLOBULINA 3.5 G/DL (2.4-3.5); POTASSIUM 4.91 mEq/L (3.5-5.1); TOTAL PROTEIN 5.8 gm/dL (6.4-8.2)
[2024-10-16] MEDS ORDERED: FLUCONAZOLE IN NACL,ISO-OSM 200 MG/100 ML PIGGYBAG IV NR (17:00)
[2024-10-16 19:02] VITALS: BP 80/57
[2024-10-17 02:06] VITALS: BP 160/87; O2SAT 99
[2024-10-17 05:51] LABS: ALBUMIN 2.1 gm/dL (3.4-5.0); BILIRUBIN TOTAL 0.31 mg/dL (0.3-1.2); CALCIUM 7.6 mg/dL (8.5-10.1); CREATININE SERUM 0.95 mg/dL (0.55-1.02); GFR 57.5; GLOBULINA 3.3 G/DL (2.4-3.5); POTASSIUM 3.71 mEq/L (3.5-5.1); TOTAL PROTEIN 5.4 gm/dL (6.4-8.2)
[2024-10-17 06:33] LABS: HEMATOCRIT 27.9 % (36.0-45.00); MEAN CELL VOLUME 91.8 fL (80.00-100.00); MEAN CORPUSCULAR HEMOGLOBIN 30.9 pg (27.00-32.0); MEAN CORPUSCULAR HGB CONC 33.7 g/dl (32.0-36.0); PLATELET COUNT 163 K/uL (150-450); RED BLOOD COUNT 3.04 M/uL (4.00-6.00); RED CELL DISTRIBUTION WIDTH 15.7 % (11.5-14.5)
[2024-10-17 06:44] LABS: HEMOGLOBIN 9.4 g/dL (12.0-15.00)
[2024-10-17 07:51] VITALS: BP 171/80; O2SAT 99
[2024-10-17] MEDS ORDERED: FLUCONAZOLE IN NACL,ISO-OSM 50 ML IV SCH (12:00)
[2024-10-17] MEDS ORDERED: FLUCONAZOLE IN NACL,ISO-OSM 2 MG/ML ML IV SCH (17:00)
[2024-10-17 17:46] VITALS: BP 160/85; O2SAT 100
[2024-10-17] MEDS ORDERED: CEFEPIME HCL 2,000 MG VIAL IV SCH (21:00)
[2024-10-18 01:43] VITALS: BP 178/84; O2SAT 97
[2024-10-18 06:39] LABS: HEMATOCRIT 25.2 % (36.0-45.00); MEAN CELL VOLUME 91.6 fL (80.00-100.00); PLATELET COUNT 138 K/uL (150-450); RED BLOOD COUNT 2.75 M/uL (4.00-6.00); RED CELL DISTRIBUTION WIDTH 16.1 % (11.5-14.5)
[2024-10-18 06:48] LABS: HEMOGLOBIN 8.6 g/dL (12.0-15.00); MEAN CORPUSCULAR HEMOGLOBIN 31.2 pg (27.00-32.0)
[2024-10-18] MEDS ORDERED: ENALAPRILAT DIHYDRATE 1.25 MG/ML VIAL IV PRN (07:15)
[2024-10-18] MEDS ORDERED: ENALAPRILAT DIHYDRATE 1.25 MG/ML VIAL IV STA (07:46)
[2024-10-18 08:39] VITALS: BP 168/68; O2SAT 98
[2024-10-18] MEDS ORDERED: LOSARTAN POTASSIUM 50 MG TABLET PO SCH (09:00)
[2024-10-18] MEDS ORDERED: ZINC OXIDE 30 GM,NYSTATIN 15 GM,SILVER SULFADIAZINE 50 GM TOP SCH (17:00)
[2024-10-18 17:54] VITALS: BP 191/81; O2SAT 100
[2024-10-19 02:40] VITALS: BP 177/92; O2SAT 96
[2024-10-19 03:01] LABS: HEMATOCRIT 33.1 % (36.0-45.00); HEMOGLOBIN 11.3 g/dL (12.0-15.00); MEAN CELL VOLUME 89.4 fL (80.00-100.00); MEAN CORPUSCULAR HEMOGLOBIN 30.4 pg (27.00-32.0); PLATELET COUNT 172 K/uL (150-450); RED CELL DISTRIBUTION WIDTH 16.6 % (11.5-14.5)
[2024-10-19] MEDS ORDERED: ORPHENADRINE CITRATE 30 MG/ML AMPUL IV STA (07:57)
[2024-10-19] MEDS ORDERED: INSULIN LISPRO 1,000 UNIT/10 ML UNITS SUBCUTANEO SCH (08:00)
[2024-10-19] MEDS ORDERED: HALOPERIDOL LACTATE 5 MG/ML AMPUL IM PRN (08:00)
[2024-10-19 08:40] VITALS: BP 150/87; O2SAT 98
[2024-10-19] MEDS ORDERED: LOSARTAN POTASSIUM 100 MG TABLET PO SCH (09:00)
[2024-10-19] MEDS ORDERED: INSULIN GLARGINE,HUM.REC.ANLOG 1,000 UNITS/10 ML UNITS SUBCUTANEO SCH (09:00)
[2024-10-19 16:37] VITALS: BP 161/84; O2SAT 90
[2024-10-19] MEDS ORDERED: ORPHENADRINE CITRATE 30 MG/ML AMPUL IV SCH (21:00)
[2024-10-20 01:05] VITALS: BP 167/83; O2SAT 94
[2024-10-20] MEDS ORDERED: TRAMADOL HCL 50 MG TABLET PO ONE (02:45)
[2024-10-20 09:53] VITALS: BP 185/87
[2024-10-20 16:15] VITALS: BP 168/85; O2SAT 100
== END 2024-10-20 21:05 | disposition home or self-care (01) | DRG 256 ==
LOC: ER 13:40 → MEDI 21:46 → SEC-K 21:46 → SURH 21:46 → MEDI 10-16 11:20
PROVIDERS: Emergency Medicine; Internal Medicine Nephrology; Student in an Organized Health Care Education/Training Program; ADMIT Internal Medicine; ATTEND Internal Medicine
PROC: B44HZZZ Ultrasonography of Bilateral Lower Extremity Arteries (ICD-10-PCS; 2024-10-12)
PROC: 02HV33Z Insertion of Infusion Device into Superior Vena Cava, Percutaneous Approach (ICD-10-PCS; 2024-10-13)
PROC: BQ2RYZZ Computerized Tomography (CT Scan) of Right Lower Extremity using Other Contrast (ICD-10-PCS; 2024-10-13)
PROC: 3E0F7GC Introduction of Other Therapeutic Substance into Respiratory Tract, Via Natural or Artificial Opening (ICD-10-PCS; 2024-10-14)
PROC: 0Y6W0Z0 Detachment at Left 4th Toe, Complete, Open Approach (ICD-10-PCS; principal; 2024-10-18 13:00)
DX: E11.52 Type 2 diabetes mellitus with diabetic peripheral angiopathy with gangrene (principal); I96 Gangrene, not elsewhere classified; M86.172 Other acute osteomyelitis, left ankle and foot; L97.528 Non-pressure chronic ulcer of other part of left foot with other specified severity; E11.69 Type 2 diabetes mellitus with other specified complication; I87.2 Venous insufficiency (chronic) (peripheral); L03.031 Cellulitis of right toe; L08.9 Local infection of the skin and subcutaneous tissue, unspecified; I10 Essential (primary) hypertension; E03.9 Hypothyroidism, unspecified; E11.42 Type 2 diabetes mellitus with diabetic polyneuropathy; E11.621 Type 2 diabetes mellitus with foot ulcer
CPT/HCPCS: 73206

== ENCOUNTER 2024-10-23 02:41 | Emergency (ER) | payer OTHER ==
[~2024-10-23] VITALS: Ht 160 cm; Wt 83.0 kg
[2024-10-23] MEDS ORDERED: ORPHENADRINE CITRATE 30 MG/ML AMPUL IM STA (04:42)
[2024-10-23] MEDS ORDERED: 0.9 % SODIUM CHLORIDE 1,000 ML IV ONE (04:45)
[2024-10-23 05:19] LABS: HEMATOCRIT 34.3 % (36.0-45.00); HEMOGLOBIN 11.6 g/dL (12.0-15.00); MEAN CELL VOLUME 90.2 fL (80.00-100.00); MEAN CORPUSCULAR HEMOGLOBIN 30.4 pg (27.00-32.0); MEAN CORPUSCULAR HGB CONC 33.7 g/dl (32.0-36.0); PLATELET COUNT 205 K/uL (150-450); RED CELL DISTRIBUTION WIDTH 16.3 % (11.5-14.5)
[2024-10-23 05:38] LABS: ALBUMIN 2.5 gm/dL (3.4-5.0); BILIRUBIN TOTAL 0.45 mg/dL (0.3-1.2); BILIRUBIN,CONJUGATED 0.17 mg/dL (0.0-0.2); BILIRUBIN,UNCONJUGATED 0.28 mg/dL (0.0-0.6); CALCIUM 8.5 mg/dL (8.5-10.1); GFR 54.2; GLOBULINA 4.5 G/DL (2.4-3.5); POTASSIUM 3.9 mEq/L (3.5-5.1)
[2024-10-23] MEDS ORDERED: PEPCID AC20 MG PO (09:39)
[2024-10-23] MEDS ORDERED: PROBIOTIC1 EAC2 PO (09:40)
[2024-10-23] MEDS ORDERED: INSULIN REGULAR, HUMAN 1,000 UNIT/10 ML UNITS SUBCUTANEO ONE (09:45)
== END 2024-10-23 14:00 | disposition home or self-care (01) ==
LOC: ER 02:41
PROVIDERS: General Practice
DX: K59.00 Constipation, unspecified (principal); M25.561 Pain in right knee; M25.562 Pain in left knee; M54.9 Dorsalgia, unspecified; I10 Essential (primary) hypertension; E11.9 Type 2 diabetes mellitus without complications; Z79.4 Long term (current) use of insulin; Z88.5 Allergy status to narcotic agent; Z88.6 Allergy status to analgesic agent; Z91.018 Allergy to other foods
CPT/HCPCS: 36415; 72100; 73565; 74177; 96365; 96366; 96372; 99284; J2360; J7030; Q9965